=== PATIENT | female | born 1965 | race Caucasian/White ===

== ENCOUNTER 2020-02-19 09:51 | Outpatient (CLI) | payer OTHER, SELFPAY ==
[2020-02-19 10:31] LABS: Hemoglobin A1C 5.9 % (<5.7)
[2020-02-19 10:36] LABS: Alanine Aminotransferase 30 U/L (4-35); Albumin Level 4.5 g/dL (3.5-5.1); Alkaline Phosphatase 71 U/L (38-126); Aspartate Amino Transferase 35 U/L (14-36); Bilirubin,Total 0.6 mg/dL (0.2-1.3); Blood Urea Nitrogen 17 mg/dL (7-17); Calcium 10.4 mg/dL (8.4-10.2); Carbon Dioxide 28 mmol/L (22-30); Chloride 104 mmol/L (98-107); Cholesterol 238 mg/dL (0-200); Estimated Glomerular Filt Rate > 60; Glucose 111 mg/dL (65-105); HDL Direct 43 mg/dL; Potassium 4.1 mmol/L (3.4-5.0); Sodium 139 mmol/L (137-145); Triglycerides 239 mg/dL (<150)
[2020-02-19 10:47] LABS: LDL Cholesterol Direct 143 mg/dL
[2020-02-19 10:56] LABS: Hematocrit 41.8 % (37.0-47.0); Hemoglobin 14.4 g/dL (12.0-15.0); Mean Corpuscular HGB Conc 34.4 g/dl (32-36); Mean Corpuscular Hemoglobin 32.3 pg (26-34); Mean Corpuscular Volume 93.7 fl (80-100); Mean Platelet Volume 10.3 fl (7.4-10.4); Platelet Count Result 327 k/mm3 (150-375); Red Blood Count 4.46 M/mm3 (4.2-5.4); Red Cell Distribution Width 13.3 % (11.5-14.5); White Blood Count 5.9 K/mm3 (4.5-10.0)
== END 2020-02-19 09:52 | disposition home or self-care (01) ==
PROVIDERS: PCP Internal Medicine; Visit Provider Internal Medicine
DX: I10 Essential (primary) hypertension (principal); E66.01 Morbid (severe) obesity due to excess calories; E03.8 Other specified hypothyroidism
CPT/HCPCS: 36415; 80053; 80061; 83036; 84439; 84443; 85027

== ENCOUNTER 2020-04-17 08:44 | Emergency (ER) | payer OTHER, SELFPAY ==
--- NOTE | ~2020-04-17 | XR_ITS ---
EXAMINATION: XR knee LT min 4V DATE: 04/17/2020 09:12 INDICATION: Posterior left knee pain post injury TECHNIQUE: Anteroposterior, 2 oblique and crosstable lateral views of the left knee were obtained COMPARISON: 07/30/2019 FINDINGS: Alignment is normal. No fracture. Mild joint space narrowing in the patellofemoral compartment and t iny marginal osteophytes in the lateral compartment consistent with mild osteoarthritis. No joint eff usion/layering lipohemarthrosis. Soft tissues are unremarkable. IMPRESSION: 1. Mild osteoarthritis of the left knee. No joint effusion or acute osseous abnormality. Reviewed, dictated and finalized at location A. IMPRESSION: 1. Mild osteoarthritis of the left knee. No joint effusion or acute osseous abn ormality.
[2020-04-17 08:54] VITALS: BP 167/96; PULSE 81; RESP 12; TEMP 36.6; O2SAT 96
--- NOTE | 2020-04-17 09:31 | ED.GENADULT ---
HPI - General Adult General Chief complaint: Extremity Injury, Lower Stated complaint: knee injury Time Seen by Provider: 04/17/20 08:59 Source: patient and family Mode of arrival: ambulatory Limitations: no limitations History of Present Illness HPI narrative: 55-year-old with a history of hypothyroidism, hypertension, osteoarthritis of the knee here with complaints of left knee pain started last evening while she was shopping. Patient states that she felt a click in left knee since then she is unable to walk. She denies any other complaints. Onset (ago): day(s) (1) Location: left and lower extremity Radiation: non-radiation Severity: moderate Severity scale (1-10): 5 Quality: aching Pain Consistency: constant Relieving factors: rest Exacerbating factors: movement Associated symptoms: denies other symptoms Related Data Home Medications Medication Instructions Recorded Confirmed calcium carbonate 300 mg (750 mg) 300 mg PO TID 01/18/20 chewable tablet flaxseed oil 1,000 mg capsule 1,000 mg PO DAILY 01/18/20 levothyroxine 125 mcg capsule 125 mcg PO DAILY 01/18/20 metoprolol tartrate 75 mg tablet 75 mg PO DAILY 01/18/20 multivitamin 1 tablet PO DAILY 01/18/20 triamterene-hydrochlorothiazid 25 - 37.5 tablet PO 04/17/20 [Maxzide-25mg] Allergies Allergy/AdvReac Type Severity Reaction Status Date / Time ciprofloxacin Allergy Unknown Unknown Verified 04/17/20 08:59 verapamil Allergy Unknown Unknown Verified 04/17/20 08:59 Review of Systems Review of Systems: All systems reviewed & are unremarkable except as noted in HPI and below Constitutional: Constitutional: Reports no additional constitutional complaints Eyes: Eyes: Reports no additional eye complaints ENT: Reports system reviewed and no additional complaints, except as documented Cardiovascular: Cardiovascular: Reports no additional cardiovascular complaints Respiratory: Respiratory: Reports no additional respiratory complaints Musculoskeletal: Musculoskeletal: Reports no additional musculoskeletal complaints [facility] Past Medical History Medical History Jay's thyroiditis History of mononucleosis (~1980) Hypertension Osteoarthritis of both knees Tibialis tendonitis Surgical History Surgical History History of cholecystectomy (~2013) History of shoulder surgery (~2004) History of tonsillectomy (~1980) History of umbilical hernia repair (~2003) Family History Family History Mother Hypertension Grandparent Cerebrovascular accident, Onset Age: 70 Father Family history of malignant neoplasm of urinary bladder Sibling Hypertension Social History Social History Smoking status: Never smoker Alcohol intake: current Gender identity (if verbalized by the patient): Female Exam Narrative: Exam Narrative: GENERAL: Well-appearing, well-nourished, and in no acute distress. HEAD: Normocephalic, atraumatic. EYES: PERRLA and EOMI. ENT: Nares clear, . Mucous membranes moist. NECK: Supple. CHEST: Clear to auscultation. No respiratory distress. HEART: Regular rate and rhythm. No murmur heard. Normal peripheral pulses. EXTREMITIES: Left knee no joint effusion , painful ROM SKIN: Warm, dry, no rash. NEURO: No focal deficits. Alert and oriented x3. PSYCH: Normal mood and affect. Course Course Emergency Course: Inform patient about her x-ray findings advised her to use crutches and knee immobilizer, take pain medication as prescribed, follow-up with orthopedic doctor Vital Signs Vital signs: Vital Signs Temperature 36.6 C 04/17/20 08:54 Pulse Rate 81 04/17/20 08:54 Respiratory Rate 12 04/17/20 08:54 Blood Pressure 167/96 H 04/17/20 08:54 Pulse Oximetry 96 04/17/20 08:54 Temperature 36.6 C
[2020-04-17 09:52] VITALS: BP 155/93; PULSE 70; RESP 18; O2SAT 98
--- NOTE | 2020-04-17 10:11 | PC.NURSE ---
Knee immobilizer is not large enough for Pt. leg that the ED has stocked in the department. EDP notified and is ok with stevie wrapping Pt. knee. Pt. advised to go to a medical supply store a larger size.
== END 2020-04-17 10:13 | disposition home or self-care (01) ==
PROVIDERS: Emergency Provider Family Medicine; PCP Internal Medicine
DX: S83.92XA Sprain of unspecified site of left knee, initial encounter (principal); E03.9 Hypothyroidism, unspecified; I10 Essential (primary) hypertension; E06.3 Autoimmune thyroiditis; M17.0 Bilateral primary osteoarthritis of knee; X58.XXXA Exposure to other specified factors, initial encounter
CPT/HCPCS: 73564; 99283; A9270

== ENCOUNTER 2020-04-17 10:31 | Outpatient (CLI) | payer OTHER, SELFPAY ==
--- NOTE | ~2020-04-17 | MR_ITS ---
EXAMINATION: MR knee LT wo con DATE: 04/17/2020 12:24 INDICATION: Left knee pain TECHNIQUE: Magnetic resonance imaging (MRI) of the left knee was performed without intravenous contra st. Sequences included coronal PD-weighted FSE, coronal PD-weighted FS FSE, sagittal T2-weighted FSE , sagittal PD-weighted FS FSE and axial PD weighted fat saturated FSE. COMPARISON: Posterior left knee pain following injury FINDINGS: Evaluation mildly limited by small amount of motion artifact or blurring on several sequences. Medial compartment: Complex tear involving the body and posterior horn of the medial meniscus. There is likely displaced meniscal flap located in the inferior gutter caudal aspect of the meniscal body which are transmitted defect along the inferior margin of the meniscus at the junction of the body and posterior horn. Par tial-thickness cartilage loss with chondral surface regularity along the medial tibial plateau and an terior to central weightbearing medial femoral condyle. More discrete deep partial-thickness chondral fissure at the central aspect of the medial tibial plateau. No degenerative subchondral changes. Lateral compartment: Lateral meniscus is normal. Mild partial thickness cartilage loss with smooth chondral surface along the weightbearing lateral femoral condyle. Additional partial thickness cartilage loss with smooth ch ondral surface at the lateral tibial plateau which appears to involve greater than 50% the cartilage thickness medially junction with the articular surface of the intercondylar eminence. Patellofemoral compartment: Deep chondral ulceration and fissuring with mild underlying cortical irregularity and minimal subarti cular edema at the mid to inferior aspect of the medial lateral trochlea and intervening trochlear gr oove. Additional partial thickness chondral fissuring without degenerative subarticular changes at th e inferior aspect of the medial and lateral patellar facets. Ligaments and tendons: Anterior and posterior cruciate ligaments are normal. The medial collateral ligament and fibular elenita ateral ligament complex are normal. The extensor mechanism is normal. The visualized medial and later al hamstring tendons as well as the iliotibial band are normal. Fluid: Very small left knee joint effusion at the suprapatellar pouch. Moderate-sized Tamayo's cyst. No loose osteochondral bodies identified. Osseous/other: Bone alignment is normal. No fracture or pathologic marrow replacing process. IMPRESSION: 1. Complex medial meniscal tear with small displaced meniscal flap. 2. Mild tricompartmental osteoarthritis with high-grade patellofemoral chondromalacia and moderate gr deandre chondral malacia the medial and lateral compartments. 3. Very small left knee joint effusion with moderate-sized Tamayo's cyst. Reviewed, dictated and finalized at location A. IMPRESSION: 1. Complex medial meniscal tear with small displaced meniscal flap. 2. Mild tricompartmental osteoarthritis with high-grade patellofemoral chondrom alacia and moderate grade chondral malacia the medial and lateral compartments. 3. Very small left knee joint effusion with moderate-sized Tamayo's cyst.
== END 2020-04-17 10:32 | disposition home or self-care (01) ==
PROVIDERS: PCP Internal Medicine; Visit Provider Internal Medicine
DX: S83.232A Complex tear of medial meniscus, current injury, left knee, initial encounter (principal); X58.XXXA Exposure to other specified factors, initial encounter; M17.12 Unilateral primary osteoarthritis, left knee; M25.462 Effusion, left knee; M71.22 Synovial cyst of popliteal space [Baker], left knee
CPT/HCPCS: 73721

== ENCOUNTER 2020-04-24 10:33 | Outpatient (CLI) | payer OTHER, SELFPAY ==
--- NOTE | 2020-04-24 10:34 | ECG_ITS ---
Measurements Intervals [place] Rate: 74 P: 26 TN: 203 QRS: 2 QRSD: 93 T: 5 QT: 399 QTc: 444 Interpretive Statements SINUS RHYTHM LOW QRS VOLTAGE IN PRECORDIAL LEADS VOLTAGE CRITERIA FOR LVH CONSIDER INFERIOR INFARCT, AGE INDETERMINATE BORDERLINE T WAVE ABNORMALITY- ANTERIOR LEADS ABNORMAL ECG Electronically Signed On 04-24-2020 12:12:34 CDT by Joseph Vasquez D.O.
[2020-04-24 11:31] LABS: Blood Urea Nitrogen 19 mg/dL (7-17); Calcium 10.1 mg/dL (8.4-10.2); Carbon Dioxide 30 mmol/L (22-30); Chloride 102 mmol/L (98-107); Estimated Glomerular Filt Rate 57; Glucose 103 mg/dL (65-105); Potassium 4.5 mmol/L (3.4-5.0); Sodium 140 mmol/L (137-145)
== END 2020-04-24 10:34 | disposition home or self-care (01) ==
LOC: ANHSURGERY 10:34
PROVIDERS: Anesthesiology; PCP Internal Medicine; Visit Provider Orthopaedic Surgery
DX: Z51.81 Encounter for therapeutic drug level monitoring (principal); I10 Essential (primary) hypertension; Z79.899 Other long term (current) drug therapy
CPT/HCPCS: 36415; 80048; 93005

== ENCOUNTER 2020-05-01 01:03 | Outpatient (CLI) | payer OTHER, SELFPAY ==
[2020-05-01 18:39] LABS: SARS-CoV-2 RNA PCR Negative
== END 2020-05-01 01:04 | disposition home or self-care (01) ==
LOC: ANHCOVIDDT 01:03
PROVIDERS: PCP Internal Medicine; Visit Provider Orthopaedic Surgery
DX: Z01.812 Encounter for preprocedural laboratory examination (principal); Z11.59 Encounter for screening for other viral diseases
CPT/HCPCS: 87635; C9803; U0003

== ENCOUNTER 2020-05-03 01:45 | Day surgery (SDC) | payer OTHER, SELFPAY ==
[2020-04-23 10:56] VITALS: BMI 47.0
[2020-05-03] VITALS (7 sets, daily range): BP systolic 112–137; BP diastolic 56–87; PULSE 61–72; RESP 15–20; TEMP 36.3–36.4; O2SAT 94–100
[2020-05-03] MEDS: ACETAMINOPHEN 500 MG TABLET 1000 MG PO (08:41)
--- NOTE | 2020-05-03 09:01 | WPDANESEPPF ---
Anes - Initial Pre Proc Eval Procedure: Operation Date: 05/03/20 10:30 Proposed Procedures p Left Knee Arthroscopy, Partial Medial Meniscectomy - Darryn Herrera MD Date/Time: 05/03/20 09:01 Surgeon: Darryn Herrera MD Pre Op Diagnosis: Left Knee Medial Meniscus Tear Patient Data Age: 55 Gender: F Height: 1.7 m Weight: 136.1 kg Allergies Allergy/AdvReac Type Severity Reaction Status Date / Time ciprofloxacin Allergy Unknown SHORTNESS Verified 05/03/20 08:37 OF BREATH, CHEST PRESSURE, HYPERTENSION verapamil Allergy Unknown PETECHIAE Verified 05/03/20 08:37 RASH hydrocodone AdvReac NAUSEA, Verified 05/03/20 08:37 VOMITING, HEADACHE Home Medications Medication Instructions Recorded Confirmed Type calcium carbonate 300 mg (750 mg) 300 mg PO TID 01/18/20 05/03/20 History chewable tablet flaxseed oil 1,000 mg capsule 1,000 mg PO DAILY 01/18/20 05/03/20 History levothyroxine 125 mcg capsule 125 mcg PO DAILY 01/18/20 05/03/20 History metoprolol tartrate 75 mg tablet 75 mg PO DAILY 01/18/20 05/03/20 History multivitamin 1 tablet PO DAILY 01/18/20 05/03/20 History triamterene-hydrochlorothiazid 25 - 37.5 tablet PO DAILY 04/17/20 05/03/20 History [Maxzide-25mg] glucos sul [id number] 1 cap PO DAILY 04/23/20 05/03/20 History [Glucosamine Chondroitin] magnesium, potassium aspartate 1 cap PO DAILY PRN 04/23/20 05/03/20 History vitamin B complex 1 tablet PO DAILY 04/23/20 05/03/20 History Patient hx anesthesia problems: none Family hx anesthesia problems: none PMFSH Past Medical History Medical History (Updated 05/03/20 @ 09:05 by Gilberto Crain MD) Anxiety Depression Jay's thyroiditis History of mononucleosis (~1980) Hypertension Hypothyroidism Migraine Morbid obesity with BMI of 40.0-44.9, adult ORION (obstructive sleep apnea) Osteoarthritis of both knees Tibialis tendonitis Surgical History Surgical History History of cholecystectomy (~2013) History of shoulder surgery (~2004) History of tonsillectomy (~1980) History of umbilical hernia repair (~2003) Social History Social History Smoking status: Never smoker Alcohol intake: current Gender identity (if verbalized by the patient): Female Spiritual care concerns: No Anes - Eval Final PreProcedure Day of Procedure 05/03/20 09:01 Patient weight: morbidly obese Heart: regular rate and rhythm Lungs: clear to auscultation and normal air movement Airway: Mallampati scale class II Neurological: alert and oriented Last oral intake: >/= 8 hours ASA classification: III Emergent: no Anesthetic plan: proceed Anesthesia type and monitoring: general LMA Informed Consent: The patient's anesthetic plan and its attendant risks and benefits were discussed with the patient/family/POA. Questions were solicited and answers provided to the satisfaction of the patient/family/POA.
[2020-05-03] MEDS: LACTATED RINGERS 1,000 ML 30 ML IV CONT ×2 (09:05→11:48)
[2020-05-03] MEDS: SCOPOLAMINE 1.5 MG PATCH TRANSDERM (09:26)
[2020-05-03] MEDS: KETOROLAC 15 MG/ML VIAL (*BKC) IV PUSH (09:26)
[2020-05-03] MEDS: FAMOTIDINE 20 MG/2 ML VIAL IV PUSH (09:27)
--- NOTE | 2020-05-03 10:47 | WPDHPUPDATE1 ---
History and Physical Update Update Date/Time: 05/03/20 10:47 History and Physical has been reviewed, including an updated exam of the patient. There are NO changes in the patient's condition. Risks, benefits, and alternatives have been discussed and questions answered. Patient agrees to proceed with procedure.
[2020-05-03] MEDS: ceFAZolin 3 GM/D5W 100 ML 100 ML IVPB (10:52)
[2020-05-03] MEDS: BUPIVACAINE/EPINEPHRINE 0.5% 10 ML VIAL 20 ML INFILTRATE (11:07)
--- NOTE | 2020-05-03 16:47 | PM.PROC ---
Procedure Note - Detailed Date of procedure: 05/03/20 Pre-op diagnosis: Left Knee Medial Meniscus Tear Medial meniscus tear. Post-op diagnosis: same Procedure performed: Arthroscopic partial medial meniscectomy. Description of procedure: Extensive complex tearing of the posterior horn of the medial meniscus. Treated with debridement. Subtotal meniscectomy. Radial component of the tear posteromedial meniscus. There was a limited amount of the superior meniscal leaflet remaining there. Moderate femoral chondromalacia treated with gentle chondroplasty. Subtle medial plica gently debrided. No significant changes laterally. ACL intact. Anesthesia: GETA Surgeon: Darryn Herrera MD Estimated blood loss (mL): 5 Complications: None Condition: stable Disposition: PACU Findings: Procedure Details: The patient was identified and the surgical site confirmed and signed in the preoperative holding area. Antibiotics were started per protocol. She was brought to the operative room and transferred to the OR table. A general anesthetic was administered. Supine position with the operative lower extremity position in the leg andrade after placement of a well padded tourniquet. The leg support was lowered and the contralateral limb was supported with a soft bolster. The knee was prepped and draped in the usual sterile fashion. A time-out was performed. The portal sites were marked and infiltrated with 0.5% Marcaine 20 mL. The limb was exsanguinated and the tourniquet inflated to 300 mL Hg. Standard inferolateral and inferomedial portals were established. Inflow was obtained with the saline pump. The camera was introduced. Diagnostic inspection of the joint was accomplished. The meniscus was debrided with the arthroscopic shaver and punches until stable. A modest sized medial plica was debrided gently. Chondroplasty was performed on the medial femoral condyle. There were grade 2 changes on the medial femur and grade 1 on the tibia. Grade 1 in the trochlea and grade 2 at the patella. The arthroscopic instruments were removed. The tourniquet released and wounds closed with subcutaneous 3-0 Monocryl absorbable suture. Steri strips and a sterile dressing were applied. A light elastic wrap was placed. The patient was extubated and brought to the recovery room in stable condition.
== END 2020-05-03 13:50 | disposition home or self-care (01) ==
PROVIDERS: PCP Internal Medicine; Visit Provider Orthopaedic Surgery
PROC: (CPT 29870; principal; 2020-05-03 10:30)
DX: S83.232A Complex tear of medial meniscus, current injury, left knee, initial encounter (principal); X58.XXXA Exposure to other specified factors, initial encounter; M94.262 Chondromalacia, left knee; G47.33 Obstructive sleep apnea (adult) (pediatric); I10 Essential (primary) hypertension; E06.3 Autoimmune thyroiditis; F41.8 Other specified anxiety disorders; E66.01 Morbid (severe) obesity due to excess calories; Z68.42 Body mass index [BMI] 45.0-49.9, adult
CPT/HCPCS: 29881; A9270; J0690; J1100; J1885; J2250; J2405; J2704; J3010; J7120

== ENCOUNTER 2020-08-12 10:30 | Outpatient (CLI) | payer OTHER, SELFPAY ==
[2020-08-12 11:37] LABS: Basophils Percent Auto 0.6 % (0.2-1.2); Eosinophils Absolute Auto 0.2 K/mm3 (0-0.3); Eosinophils Percent Auto 2.7 % (0-4.4); Hematocrit 42.2 % (37.0-47.0); Hemoglobin 14.6 g/dL (12.0-15.0); Immature Granulocyte Absolute 0.02 K/mm3 (0.00-0.031); Immature Granulocyte Percent A 0.3 % (0-0.5); Lymphocytes Absolute Auto 1.99 K/mm3 (0.9-3.2); Lymphocytes Percent Auto 31.5 % (18.3-44.2); Mean Corpuscular HGB Conc 34.6 g/dl (32-36); Mean Corpuscular Hemoglobin 32.4 pg (26-34); Mean Corpuscular Volume 93.8 fl (80-100); Mean Platelet Volume 9.9 fl (7.4-10.4); Monocytes Absolute Auto 0.5 K/mm3 (0.1-0.6); Monocytes Percent Auto 8.4 % (2.6-8.5); Neutrophils Absolute Auto 3.6 K/mm3 (1.3-6.7); Neutrophils Percent Auto 56.5 % (45.5-73.1); Platelet Count Result 315 k/mm3 (150-375); Red Cell Distribution Width 13.2 % (11.5-14.5); White Blood Count 6.3 K/mm3 (4.5-10.0)
[2020-08-12 11:47] LABS: Hemoglobin A1C 5.4 % (<5.7)
[2020-08-12 11:48] LABS: Alanine Aminotransferase 32 U/L (4-35); Albumin Level 4.6 g/dL (3.5-5.1); Alkaline Phosphatase 71 U/L (38-126); Anion Gap 9 mmol/L (8-16); Aspartate Amino Transferase 33 U/L (14-36); Bilirubin,Total 0.5 mg/dL (0.2-1.3); Blood Urea Nitrogen 18 mg/dL (7-17); Calcium 10.3 mg/dL (8.4-10.2); Carbon Dioxide 29 mmol/L (22-30); Chloride 102 mmol/L (98-107); Estimated Glomerular Filt Rate 57; Glucose 107 mg/dL (65-105); Potassium 3.9 mmol/L (3.4-5.0); Sodium 140 mmol/L (137-145)
[2020-08-12 12:54] LABS: Folic Acid 19.4 ng/mL (2.76->20)
[2020-08-12 13:03] LABS: Vitamin D 25 Hydroxy 60.1 ng/mL
== END 2020-08-12 10:31 | disposition home or self-care (01) ==
PROVIDERS: PCP Internal Medicine
DX: E88.9 Metabolic disorder, unspecified (principal); E63.9 Nutritional deficiency, unspecified; E03.9 Hypothyroidism, unspecified; R53.83 Other fatigue; E66.01 Morbid (severe) obesity due to excess calories; Z68.43 Body mass index [BMI] 50.0-59.9, adult; R79.9 Abnormal finding of blood chemistry, unspecified
CPT/HCPCS: 36415; 80053; 82306; 82607; 82728; 82746; 83036; 84443; 85025

== ENCOUNTER 2020-09-18 10:56 | Outpatient (CLI) | payer OTHER, SELFPAY ==
[2020-09-18 11:59] LABS: Alanine Aminotransferase 28 U/L (4-35); Albumin Level 4.5 g/dL (3.5-5.1); Alkaline Phosphatase 77 U/L (38-126); Anion Gap 7 mmol/L (8-16); Aspartate Amino Transferase 32 U/L (14-36); Bilirubin,Total 0.6 mg/dL (0.2-1.3); Blood Urea Nitrogen 19 mg/dL (7-17); Calcium 10.2 mg/dL (8.4-10.2); Carbon Dioxide 33 mmol/L (22-30); Chloride 100 mmol/L (98-107); Estimated Glomerular Filt Rate 57; Glucose 124 mg/dL (65-105); Potassium 3.8 mmol/L (3.4-5.0); Sodium 140 mmol/L (137-145)
[2020-09-18 12:37] LABS: Add Urine Microscopic? NO; Appearance Urine Clear (Clear); Bilirubin Urine Negative (Negative); Blood Urine Negative (Negative); Color Urine Yellow (Yellow); Glucose Urine UA Negative (Negative); Ketones Urine Negative (Negative); Leukocyte Esterase Ur Negative LEU/UL (Negative); Mucus Urine Rare /lpf; Nitrate Urine Negative (Negative); Protein Urine Negative (Negative); RBC Urine 0-2 /hpf (0-2); Specific Grav Ur 1.018 (1.001-1.035); Squamous Epithelial Cell Urine Few /hpf (Few); Urobilinogen Urine Negative mg/dL (<2.0); WBC Urine 0-3 /hpf
== END 2020-09-18 10:57 | disposition home or self-care (01) ==
PROVIDERS: PCP Internal Medicine; Visit Provider Internal Medicine
DX: R39.9 Unspecified symptoms and signs involving the genitourinary system (principal)
CPT/HCPCS: 36415; 80053; 81003

== ENCOUNTER 2020-12-16 08:28 | Outpatient (CLI) | payer OTHER, SELFPAY ==
[2020-12-16 19:40] LABS: Hematocrit 45.3 % (37.0-47.0); Hemoglobin 14.6 g/dL (12.0-15.0); Mean Corpuscular HGB Conc 32.2 g/dl (32-36); Mean Corpuscular Hemoglobin 31.9 pg (26-34); Mean Corpuscular Volume 98.9 fl (80-100); Mean Platelet Volume 10.3 fl (7.4-10.4); Platelet Count Result 339 k/mm3 (150-375); Red Blood Count 4.58 M/mm3 (4.2-5.4); Red Cell Distribution Width 13.7 % (11.5-14.5); White Blood Count 6.2 K/mm3 (4.5-10.0)
[2020-12-16 19:51] LABS: Hemoglobin A1C 5.6 % (<5.7)
[2020-12-16 20:05] LABS: Vitamin D 25 Hydroxy 77.8 ng/mL
[2020-12-16 20:07] LABS: Alanine Aminotransferase 30 U/L (4-35); Albumin Level 4.1 g/dL (3.5-5.1); Alkaline Phosphatase 68 U/L (38-126); Anion Gap 3 mmol/L (8-16); Aspartate Amino Transferase 27 U/L (14-36); Bilirubin,Total 0.4 mg/dL (0.2-1.3); Blood Urea Nitrogen 20 mg/dL (7-17); Carbon Dioxide 33 mmol/L (22-30); Chloride 104 mmol/L (98-107); Cholesterol 236 mg/dL (0-200); Estimated Glomerular Filt Rate 57; Glucose 112 mg/dL (65-105); HDL Direct 50 mg/dL; Potassium 4.8 mmol/L (3.4-5.0); Sodium 140 mmol/L (137-145); Triglycerides 264 mg/dL (<150)
[2020-12-16 20:18] LABS: LDL Cholesterol Direct 147 mg/dL
== END 2020-12-16 08:29 | disposition home or self-care (01) ==
PROVIDERS: PCP Internal Medicine
DX: E88.9 Metabolic disorder, unspecified (principal); E63.9 Nutritional deficiency, unspecified; R53.83 Other fatigue; E66.01 Morbid (severe) obesity due to excess calories; Z68.43 Body mass index [BMI] 50.0-59.9, adult
CPT/HCPCS: 36415; 80053; 80061; 82306; 82607; 82728; 82746; 83036; 84443; 85027

== ENCOUNTER 2022-02-16 10:49 | Outpatient (CLI) | payer OTHER, SELFPAY ==
--- NOTE | ~2022-02-16 | MM_ITS ---
EXAMINATION: MM screening chelsey BI w noah HISTORY: Screening TECHNIQUE: Craniocaudal and mediolateral oblique 3-D tomosynthesis images were obtained and synthetic 2-D images were generated. CAD analysis was submitted and interpreted. COMPARISON: Comparison to multiple prior studies sequentially, with oldest reviewed study dated 12/25. BREAST PARENCHYMAL COMPOSITION: Breast composed of scattered areas of fibroglandular density FINDINGS: There is developing subareolar asymmetry in the right breast with possible architectural di stortion. The left breast is stable without evidence for malignancy. IMPRESSION: 1. Subtle developing right breast asymmetry, subareolar location. 2. Additional mammographic views and possible breast ultrasound are recommended. BI-RADS Category 0: Incomplete: Needs additional imaging evaluation. Reviewed, dictated and finalized at location A. IMPRESSION: 1. Subtle developing right breast asymmetry, subareolar location. 2. Additional mammographic views and possible breast ultrasound are recommended . BI-RADS Category 0: Incomplete: Needs additional imaging evaluation.
== END 2022-02-16 10:50 | disposition home or self-care (01) ==
LOC: ANHIMG 10:50
PROVIDERS: PCP Internal Medicine; Visit Provider Internal Medicine
DX: Z12.31 Encounter for screening mammogram for malignant neoplasm of breast (principal); R92.8 Other abnormal and inconclusive findings on diagnostic imaging of breast
CPT/HCPCS: 77063; 77067

== ENCOUNTER 2022-02-26 12:59 | Outpatient (CLI) | payer OTHER, SELFPAY ==
--- NOTE | ~2022-02-26 | MMUS_ITS ---
EXAMINATION: MM diagnostic chelsey RT w noah, US breast RT limited HISTORY: Focal asymmetry in the subareolar aspect of the right breast TECHNIQUE: Additional 3-D tomosynthesis images of the right breast were performed and synthetic 2-D i mages were generated. CAD analysis was submitted and interpreted. High resolution limited right breas t ultrasound was performed. COMPARISON: 02/16/2022, 07/19/2019, 08/20/2016 FINDINGS: MAMMOGRAPHIC FINDINGS: There is a return to baseline fibroglandular appearance with spot compression of the right breast in the area questioned on screening mammogram. ULTRASOUND: No focal cystic or solid mass is identified. There are multiple mildly dilated subareolar ducts, some of which contain debris. IMPRESSION: 1. No mammographic or sonographic evidence of malignancy. 2. Recommend routine screening mammography in one year. BI-RADS Category 2: Benign finding(s). Reviewed, dictated and finalized at location A. IMPRESSION: 1. No mammographic or sonographic evidence of malignancy. 2. Recommend routine screening mammography in one year. BI-RADS Category 2: Benign finding(s).
== END 2022-02-26 13:00 | disposition home or self-care (01) ==
PROVIDERS: PCP Internal Medicine; Visit Provider Internal Medicine
DX: R92.8 Other abnormal and inconclusive findings on diagnostic imaging of breast (principal)
CPT/HCPCS: 76642; 77061; 77065; G0279

== ENCOUNTER 2025-01-19 09:09 | Emergency (ER) | payer OTHER, SELFPAY ==
[2025-01-19] VITALS (25 sets, daily range): BP systolic 119–157; BP diastolic 55–101; PULSE 64–85; RESP 11–26; TEMP 36.6–36.7; O2SAT 97–100
--- NOTE | ~2025-01-19 | XR_ITS ---
EXAM/PROCEDURE: XR chest 2V - 01/19/2025 10:10 CDT HISTORY: 60 years old Female with intermittent chest pain, HYPERTENSION TECHNIQUE: Two view(s) of the chest. COMPARISON: None available. FINDINGS: LUNGS/ PLEURA: No focal consolidation. No appreciable pneumothorax or large pleural effusion. HEART/ MEDIASTINUM: Heart appears normal in size. BONES: No acute osseous abnormality. OTHER: Visualized upper abdomen is unremarkable. IMPRESSION: No acute process. Reviewed, dictated and finalized at location A. IMPRESSION: No acute process.
--- NOTE | ~2025-01-19 | CT_ITS ---
EXAM: CT brain wo con - 01/19/2025 10:10 CDT History: 60 years old Female with high blood pressure, [place] COMPARISON: None available. PROCEDURE: CT of the head without contrast. Axial, sagittal and coronal reformatted planes were andriy luated. Automatic exposure control was used for this study. FINDINGS: BRAIN PARENCHYMA: No acute hemorrhage. No mass effect or herniation. Combs-white matter differentiatio n is maintained. Normal appearance of cortex. VENTRICLES/ EXTRA-AXIAL SPACES: No hydrocephalus or extra-axial fluid collection. EXTRACRANIAL STRUCTURES: No calvarial fracture. IMPRESSION: No evidence for acute intracranial hemorrhage or calvarial fracture. Reviewed, dictated and finalized at location A.
--- OUTSIDE RECORDS SUMMARY | 2025-01-19 09:26 | XMS_ITS | Encounter Summary ---
Author Organization [facility] Address [address] [place] [address] Phone Care Team Providers Care Urology Teacher Name Role Phone Carlos Enrique Swain MD Primary Care Provider [phone] Encounter Details Date Type Department Care Team (Late st Contact Info) Description 02/25/2021 Telephone [facility] [address] [place] [address] Medical Office Building [address] [place] [address] Juanita Powell Social History Tobacco Use Types Packs/Day Years Used Date Smoking Tobacco: Never Alcohol Use Standard Drinks/Week Comments No 0 (1 standard drink = 0.6 oz pur e alcohol) AUDIT-C Answer Date Recorded Q1: How often do you have a drink containing alc ohol? 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 Gender Identity Female 02/04/2021 10:40 AM CDT Sexual Orientation Straight 02/04/2021 10 :40 AM CDT documented as of this encounter Plan of Treatment Not on file documented as of this encounter Visit Diagnoses Not on filedocumented in this encounter Additional Health Concerns Infection Onset Date Last Indicated Resolved Time COVID: Suspected 05/30/2021 05/30/2021 05/30/2021 1:20 PM CDT COVID: Suspected 04/22/2022 04/22/2022 04/22/2022 9:52 AM CDT COVID: Suspected 04/22/2022 04/22/2022 04/22/2022 3:21 PM CDT COVID19 04/22/2022 04/22/2022 05/02/2022 3:05 AM CDT COVID: Recovered Comment:Added based on recent COVID infection. 05/02/2022 07/02/2022 08/30/2022 3:[address] documented as of this encounter Care Teams Urology Teacher Relationship Specialty Start Date End Date Carlos Enrique Swain MD [address] [place] [id number] PCP - General Internal Medicine 07/30/20 documented as of this encounter
--- OUTSIDE RECORDS SUMMARY | 2025-01-19 09:26 | XMS_ITS | Clinical Summary ---
Author Organization [facility] Address [address] [place] [address] Phone Care Team Providers Care Veterinarian Small Animal Name Role Phone Carlos Enrique Swain MD Primary Care Provider [phone] Fortino Trejo MD Unavailable Unavaila ble Allergies Active Allergy Reactions Criticality Noted Date Comments Verapamil Other (see Comments) Skin rash/hives Ciprofloxacin Other (see Comments) Tightness in chest Ciprofloxacin Hcl Shortness of Breath High 6 Codeine Sulfate Other (see Comments) Nausea/vomiting/diarrhe a Meperidine Other (see Comments) Nausea/vomiting/diarrhe a,headache Hydrocodone Other (see Comments) 08/14/2021 Headache/nausea/ vomiting/diarrhea Metformin Diarrhea 08/14/2021 Medications Cyanocobalamin ( SUPER VITAMIN B12) 2500 MCG PO CHEW Active ibuprofen 800 MG PO TABS Take 800 mg by mouth every 8 hours as needed. Active Magnesium ([facility] MAGNESIUM) 250 MG PO TABS Take 500 mg by mouth daily. Active Cholecalciferol (VITAMIN D3) 5000 UNITS PO CAPS Take 5,000 Units by mouth every 48 hours. Active omeprazole 40 MG PO CAP-DEL-REL Take 40 mg by mouth daily. Active ranitidine 150 MG PO TABS Take 150 mg by mouth nightly. At bedtime Active levothyroxine 100 MCG PO TABS Take 112 mcg by mouth daily. Active Flaxseed, Linseed, ([employer] FLAXSEED OIL) 1000 MG PO CAPS Take by mouth daily. Active baclofen (LIORESAL) 20 MG Tablet 6 Active triamterene-hyd rochlorothiazid e (MAXZIDE) 37.5-25 MG Tablet 5 Active metoprolol tartrate (LOPRESSOR) 50 MG Tablet Take 50 mg by mouth 2 times daily. 5 Active ranitidine (ZANTAC) 150 MG Tablet 5 Active cloNIDine (CATAPRES) 0.1 MG Tablet 5 Active potassium chloride CR (KLOR-CON) 10 MEQ Tablet Controlled Release 5 Active Meloxicam 15 MG Tablet Take 15 mg by mouth daily. 6 Active hydrALAZINE 25 MG Tablet 6 Active lovastatin (MEVACOR) 20 MG Tablet 6 Active hydrALAZINE 25 MG Tablet Take 25 mg by mouth. 6 Active LORazepam (ATIVAN) 0.5 MG Tablet 6 Active losartan (COZAAR) 50 MG Tablet 6 Active lovastatin (MEVACOR) 20 MG Tablet 6 Active zolpidem (AMBIEN) 10 MG Tablet Take 1 Tab by mouth nightly as needed. 10 Tab 8 Active Additional Information Patient not taking.Reported on 08/14/2021 [place]-3 Fatty Acids (FISH OIL PO) Take 1 Capsule by mouth daily. Active famotidine (PEPCID) 10 MG Tablet Take 10 mg by mouth 2 times daily. Active [id number]-[id number]-[id number] -RS-X-VQIP-SECU PO Take 1 Tablet by mouth daily. Active Active Problems Problem Noted Date Diagnosed Date Lumbar spinal stenosis 09/18/2016 ORION (obstructive sleep apnea) 02/05/2016 Esophageal reflux Fatty liver Systemic hypertension Hypothyroidism Morbid obesity Pharyngeal disorder Encounters Date Type Department Care Team Description 01/16/2025 10:45 AM CDT [facility] [address], [address] [place] [address] Suthan, Nanthini, MD Bogowith, Tamika A, PT Chronic neck pain (Primary Dx); Cervical spondylosis Discharge Disposition: Discharged to home or Selfcare 01/16/2025 Plan of Care Documentation [facility] at [address], [address] [place] [address] 01/15/2025 Travel 01/03/2025 Transcribe Orders [facility] [address] [place] [address] Carlos Enrique Swain MD Cervical spondylosis (Primary Dx) from Last 3 Months Family History Medical History Relation Name Comments Cancer Father bladder Hypertension Mother Relation Name Status Comments Father Mother Alive Social History Tobacco Use Types Packs/Day Years Used Date Smoking Tobacco: Never Smokeless Tobacco: Never Alcohol Use Standard Drinks/Week Comments Yes 0 (1 standard drink = 0.6 oz pur e alcohol) Occassionally Comments No Sex and Gender Information Value Date Recorded Sex Assigned at Not on file Legal Sex Female 12:21 AM CDT Gender Identity Not on file Sexual Orientation Not on file 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 Not on file Not on file Last Filed Vital Signs Vital Sign Reading Time Taken Comments Blood Pressure 125/79 08/19/2021 12:45 PM MYSQL DATABASE ADMINISTRATOR Pulse 64 08/19/2021 12:45 PM MYSQL DATABASE ADMINISTRATOR Temperature 36.8 C (98.2 F) 08/19/2021 12:45 PM MYSQL DATABASE ADMINISTRATOR Respiratory Rate 16 08/19/2021 12:45 PM MYSQL DATABASE ADMINISTRATOR Oxygen Saturation 96% 08/19/2021 12:45 PM MYSQL DATABASE ADMINISTRATOR Inhaled Oxygen Concentration - - Weight 126.6 kg (279 lb) 08/19/2021 8:08 AM MYSQL DATABASE ADMINISTRATOR Height 170.2 cm (5' 7 ) 08/19/2021 8:08 AM MYSQL DATABASE ADMINISTRATOR Body Mass Index 43.7 08/19/2021 8:08 AM MYSQL DATABASE ADMINISTRATOR Plan of Treatment Upcoming Encounters Date Type Department Care Team (Late st Contact Info) Description 01/23/2025 4:00 PM CDT Physical Therapy [facility] Re[facility] at [address] [place] [address] Carlos Enrique Swain MD [address] [place], [place] [id number] Rico Franco, DIETARY SERVICES DIRECTOR [place] Discharge Disposition: Discharged to home or Selfcare 01/25/2025 1:45 PM CDT [facility] [address], [address] [place] [address] Carlos Enrique Swain MD [address] [place], [place] [phone] Rico Franco, BISI [place] 01/30/2025 2:00 PM CDT [facility] [address], [address] [place] [address] Carlos Enrique Swain MD [address] [place], [place] [id number] Tamika Louis, PT [place] 02/01/2025 1:45 PM CDT [facility] [address], [address] [place] [address] Carlos Enrique Swain MD [address] [place], [place] [phone] Rico Franco PTA [place] 02/06/2025 8:30 AM CDT [facility] at [address], [address] [place] [address] Carlos Enrique Swain MD [address] [place], [place] [phone] Rico Franco, BISI [place] 02/08/2025 2:45 PM CDT [facility] [address] [facility], [address] [place] [address] Carlos Enrique Swain MD [address] [facility] [address] [place], [place] [id number] Tamika Louis, PT [place] 02/13/2025 1:45 PM CDT [facility] [address], [address] [place] [address] Carlos Enrique Swain MD [address] [place], [place] [phone] Rico Franco, DIETARY SERVICES DIRECTOR [place] 02/15/2025 1:45 PM CDT [facility] [address] [place] [address] Carlos Enrique Swain MD [address] [facility] [address] [place] [address] Rico Franco, DIETARY SERVICES DIRECTOR [place] 02/20/2025 2:45 PM CDT [facility] [address], [address] [place] [address] Carlos Enrique Swain MD [address] [facility] [address] [place], [place] [phone] Tamika Louis, PT [place] 02/22/2025 2:00 PM CDT [facility] [address], [address] [place] [address] Carlos Enrique Swain MD [address] [place] [address] Tamika Louis, PT [place] 02/27/2025 2:00 PM CDT [facility] [place] [address], [address] [place] [address] Carlos Enrique Swain MD [address] [place] [address] Tamika Louis, PT [place] Health Maintenance Due Date Last Done Comments Hepatitis C Virus (HCV) Screening 1965 Cologuard 01/04/2014 Immunochemical Fecal Occult Blood 01/04/2014 Pneumococcal Immunization (5 0+ years) (1 of 1 - PCV) 01/04/2014 Zoster Immunization (1 of 2) 01/04/2014 SARS-COV-2 Immunization (1 - season) 2024 Mammogram 11/11/2024 11/11/2023, 02/22/2016 Influenza Immunization (Seas on Ended) 2025 08/17/2018 Colonoscopy 02/18/2032 02/17/2022, 09/03/2014 Colorectal Cancer Screening 02/18/2032 Respiratory Syncytial Virus (RSV) Immunization (Adult) (1 - 1-dose 75+ series) 01/04/2039 02/17/2022, 09/03/2014 DTaP/Tdap/Td Immunization Discontinued 01/25/2018 TdaP Immunization Completed 01/25/2018 Hepatitis B Immunization Aged Out No longer eligible based on patient's age to complete this topic Meningococcal Immunization (ACWY) Aged Out No longer eligible based on patient's age to complete this topic Rotavirus Immunization Aged Out No lo nger eligible based on patient's age to complete this topic Medical Devices Implanted Type Area Weed Science Research Technician Device Identifier Shelf Expiration Date Model / Serial / Lot Device Clsr 5fr [employer] Superintendent Vasc Bln Cath Lock Syr Integrate Sealant 10ml Lf Disp - [id number] Implanted:Qty : 1 on 08/19/2021 by Rosana Marrero MD at [facility] IMPLANT Right: [employer] 07/10/2023 [id number] / / [id number] Procedures Procedure Name Priority Date/Time Associated Diagnosis Comments STEPHEN SCREENING BILATERAL DIGITAL W CAD Routine 02/22/2016 10:07 AM CDT Visit for screening mammogram HM COLONOSCOPY Routine 09/03/2014 from Last 3 Months or Most Recently Relevant to Health Maintenance Results * STEPHEN SCREENING BILATERAL DIGITAL W CAD (02/22/2016 10:07 AM CDT) Anatomical Region Laterality Modality breast Bilateral Mammography 02/22/2016 9:44 AM CDT Narrative 02/25/2016 4:28 PM CDT - STEPHEN SCREENING BILATERAL DIGITAL W CAD BILATERAL DIGITAL SCREENING MAMMOGRAM WITH CAD WITH MEDIOLATERAL OBLIQUE CRANIOCAUDAL: 02/22/2016 The study was acquired using digital technology and interpreted from soft copy. Current study was also evaluated with ICAD version 7.2. CLINICAL: Routine screening. Patient has no complaints. Previous history of cervical cancer. No family history of breast cancer. COMPARISONS: Comparison is made to exams dated: 12/25/2014 [facility] and 03/14/2012 [facility]. BREAST TISSUE: The tissue of both breasts is heterogeneously dense, which may obscure small masses. FINDINGS: There are benign appearing calcifications in the right breast. No significant masses, calcifications, or other findings are seen in either breast. There has been no significant interval change. IMPRESSION: BI-RAD 2 BENIGN There is no mammographic evidence of malignancy. A 1 year screening mammogram is recommended. The patient has been or will be contacted. The patient will be entered into a reminder system with a target due date of 1 year for her next screening exam. Electronically signed by: Woody Escalante M.D. nh/:02/24/2016 09:11:20 Senior Accountant Analyst: Yolette VILLEGAS(Nate)(M), [facility] letter sent: Normal Exam Reading location: [facility] BI-RADS: 2 Benign Procedure Note Woody Escalante MD - 02/25/2016 - STEPHEN SCREENING BILATERAL DIGITAL W CAD BILATERAL DIGITAL SCREENING MAMMOGRAM WITH CAD WITH MEDIOLATERAL OBLIQUE CRANIOCAUDAL: 02/22/2016 The study was acquired using digital technology and interpreted from soft copy. Current study was also evaluated with ICAD version 7.2. CLINICAL: Routine screening. Patient has no complaints. Previous history of cervical cancer. No family history of breast cancer. COMPARISONS: Comparison is made to exams dated: 12/25/2014 [facility] and 03/14/2012 [facility]. BREAST TISSUE: The tissue of both breasts is heterogeneously dense, which may obscure small masses. FINDINGS: There are benign appearing calcifications in the right breast. No significant masses, calcifications, or other findings are seen in either breast. There has been no significant interval change. IMPRESSION: BI-RAD 2 BENIGN There is no mammographic evidence of malignancy. A 1 year screening mammogram is recommended. The patient has been or will be contacted. The patient will be entered into a reminder system with a target due date of 1 year for her next screening exam. Electronically signed by: Woody Escalante M.D. nh/:02/24/2016 09:11:20 Senior Accountant Analyst: Yolette VILLEGAS(R)(M), [facility] letter sent: Normal Exam Reading location: [facility] BI-RADS: 2 Benign us Carlos Enrique Swain MD IMG MAMMO ORDERABLES Final Re sult * HM COLONOSCOPY (09/03/2014) us Marc Charles DO PROCEDURE/MINOR SURGICAL ORDERA BLES Final Result from Last 3 Months or Most Recently Relevant to Health Maintenance Insurance MEDICAID [employer] Care Teams Veterinarian Small Animal Relationship Specialty Start Date End Date Carlos Enrique Swain MD [address] [place] [address] PCP - General Internal Medicine 11/04/15 Fortino Trejo MD [address] [facility] [address] [place] [address] Otolaryngology 01/21/16
--- OUTSIDE RECORDS SUMMARY | 2025-01-19 09:26 | XMS_ITS | Encounter Summary ---
Author Organization [facility] Address [address] [place] [address] Phone Care Team Providers Care Furniture Servicer Name Role Phone Carlos Enrique Swain MD Primary Care Provider [phone] Encounter Details Date Type Department Care Team (Latest Contact Info) Description 12/16/2020 Orders Only [facility] Scanning, Provider Social History Tobacco Use Types Packs/Day Years Used Date Smoking Tobacco: Never Alcohol Use Standard Drinks/Week Comments No 0 (1 standard drink = 0.6 oz pur e alcohol) Comments Unknown Sex and Gender Information Value Date Recorded Sex Assigned at Not on file Legal Sex Female 8:12 AM HOSIERY LOOPER Gender Identity Female 02/04/2021 10:40 AM CDT Sexual Orientation Straight 02/04/2021 10 :40 AM CDT documented as of this encounter Plan of Treatment Not on file documented as of this encounter Procedures Procedure Name Priority Date/Time Associated Diagnosis Comments SCAN - LABS 12/16/2020 documented in this encounter Results * SCAN - LABS (12/16/2020) us Provider Scanning Edited Result - Final documented in this encounter Visit Diagnoses Not on filedocumented [...] documented as of this encounter Care Teams Furniture Servicer Relationship Specialty Start Date End Date Carlos Enrique Swain MD [address] [place] [address] PCP - General Internal Medicine 07/30/20 documented as of this encounter
--- OUTSIDE RECORDS SUMMARY | 2025-01-19 09:26 | XMS_ITS | Encounter Summary ---
Author Organization [facility] Address [address] [facility] [place] [address] Phone Care Team Providers Care Sole Conditioner Name Role Phone Carlos Enrique Swain MD Primary Care Provider [phone] Fortino Trejo MD Unavailable Unavaila ble Reason for Referral * PT/OT/ST (Routine) - Open Specialty Diagnoses / Procedures Referred By Joyce nicholson Referred To Contact Physical Therapy Diagnoses Cervical spondylosis Carlos Enrique Swain MD [address] [place] [address] Phone: tel: fax: [facility] [address], [address] [address] Phone: tel: fax: Referral ID Status Reason Start Date Expiration Date Visits Re quested Visits Authorized [id number] Open 01/03/2025 50 50 Scheduling Instructions Encounter Details Date Type Department Care Team (Late st Contact Info) Description 01/03/2025 Transcribe Orders [facility] [address] [place] [address] Carlos Enrique Swain MD [address] [place], [place] [phone] Cervical spondylosis (Primary Dx) Social History Tobacco Use Types Packs/Day Years [...] 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 Not on file Not on file documented as of this encounter Plan of Treatment Upcoming Encounters Date Type Department Care Team (Late st Contact Info) Description 01/23/2025 4:00 PM CDT Physical [facility] [address] [facility], [address] [address] Carlos Enrique Swain MD [address] [place], [place] [phone] Rico Franco, SPRINKLER TRUCK DRIVER [place] Discharge Disposition: Discharged to home or Selfcare 01/25/2025 1:45 PM CDT Physical Therapy [facility] [address], [address] [address] Carlos Enrique Swain MD [address] [place] [address] Rico Franco, SPRINKLER TRUCK DRIVER [place] 01/30/2025 2:00 PM CDT Physical Therapy [facility] [address], [address] [address] Carlos Enrique Swain MD [address] [place], [place] [phone] Tamika Louis PT [place] 02/01/2025 1:45 PM CDT Physical Therapy [facility] [address] [facility], [address] [place] [address] Carlos Enrique Swain MD [address] [place] [address] Rico Franco, SPRINKLER TRUCK DRIVER [place] 02/06/2025 8:30 AM CDT [facility] [address], [address] [place] [address] Carlos Enrique Swain MD [address] [facility] [address] [place], [place] [phone] Rico Franco, SPRINKLER TRUCK DRIVER [place] 02/08/2025 2:45 PM CDT [facility] [address], [address] [address] Carlos Enrique Swain MD [address] [place] [address] Tamika Louis, PT [place] 02/13/2025 1:45 PM CDT [facility] [address], [address] [phone] Carlos Enrique Swain MD [address] [place] [address] Rico Franco, SPRINKLER TRUCK DRIVER [place] 02/15/2025 1:45 PM CDT [facility] [address], [facility] [address] [place] [address] Carlos Enrique Swain MD [address] [place] [address] Rico Franco, SPRINKLER TRUCK DRIVER [place] 02/20/2025 2:45 PM CDT Physical Therapy [facility] [address], [address] [place] [address] Carlos Enrique Swain MD [address] [place] [address] Tamika Louis, PT [place] 02/22/2025 2:00 PM CDT Physical Therapy [facility] [address] [place] [address] Carlos Enrique Swain MD [address] [facility] [address] [place] [address] Tamika Louis, PT [place] 02/27/2025 2:00 PM CDT Physical Therapy [facility] [address] [facility], [address] [address] Carlos Enrique Swain MD [address] [facility] [address] [place] [address] Tamika Louis, PT [place] Scheduled Referrals Name Type Priority Associated Diagnoses Orde r Schedule PHYSICAL THERAPY REFERRAL Outpatient Referral Routine Cervical spondylosis Expected: 01/03/2025, Expires: 01/03/2026 documented as of this encounter Visit Diagnoses Diagnosis Cervical spondylosis- Primary Cervical spondylosis without myelopathy documented in this encounter Care Teams Sole Conditioner Relationship Specialty Start Date End Date Carlos Enrique Swain MD [address] [place] [address] PCP - General Internal Medicine 11/04/15 Fortino Trejo MD [address] [place] [address] Otolaryngology 01/21/16 documented as of this encounter
--- OUTSIDE RECORDS SUMMARY | 2025-01-19 09:26 | XMS_ITS | Clinical Summary ---
Author Organization [facility] Address [address] [place] [address] Care Team Providers Care Slot Supervisor Name Role Phone Carlos Enrique Hernandez MD Primary Care Provider [phone] Allergies Active Allergy Reactions Criticality Noted Date Comments Ciprofloxacin Chest pressure,Rash,Other (see comment),Shortness of Breath High 03/03/2007 Tightness in chest Reaction: tight chest, HTN, Codeine Other (see comment),Unknown 02/16/2022 Nausea/vomiting/johnny rrhea Hydrocodone Dizziness,GI Upset,Headache,Nausea and Vomiting,Other (see comment) Low 01/14/2021 Headache/nausea/ vomiting/diarrhea Meperidine Other (see comment) 01/02/2025 Nausea/vomiting/johnny rrhea,headache Metformin And Related Diarrhea,GI Upset Low 020 Verapamil Other (see comment),Rash Low 01/03/2012 Skin rash/hives Reaction: rash, Medications magnesium 250 MG tablet Take 2 tablets (500 mg total) by mouth daily. Active levothyroxine (SYNTHROID) 112 MCG tablet Take 1 tablet (112 mcg total) by mouth daily. 4 Active ibuprofen (MOTRIN) 800 MG tablet Take 1 tablet (800 mg total) by mouth. Active Flaxseed, Linseed, (FLAX SEED OIL) 1000 MG capsule Take by mouth daily. Active Vitamin B12 100 MCG tablet Vitamin B12 [id number] [id number]-Ccpctive Active vitamin D3, cholecalciferol, 125 mcg capsule Take 1 capsule (5,000 Units total) by mouth. Active Berberine-RedIso GadduEhe-S-R (OSTERA) Tab Take by mouth Active B Complex Vitamins (VITAMIN B-COMPLEX) Tab Take 1 tablet by mouth daily. Active cyclobenzaprine (FLEXERIL) 10 MG tabletIndication s:Cervical spondylosis Take 1 tablet (10 mg total) by mouth 2 (two) times daily as needed for Muscle Spasms. 60 tablet 5 02/02/20 25 Active ezetimibe (ZETIA) 10 MG tabletIndication s:Carotid artery plaque, left Take 1 tablet (10 mg total) by mouth daily. 90 tablet Active LORazepam (ATIVAN) 0.5 MG tabletIndication s:Claustrophobia Take 1 tablet (0.5 mg total) by mouth once for 1 dose. 1 tablet 5 01/11/20 Active Problems Problem Noted Date Diagnosed Date Claustrophobia 01/10/2025 Cervical spondylosis 01/04/2025 Assessment & Plan (01/04/2025 4:18 PM CDT): -Progressively worsening -Will check x-ray of cervical spine and try to get MRI as well -Patient is willing to go for physical therapy Atherosclerosis of left carotid artery Overview (01/08/2025): On xray -ordered carotid us 12/2024-mild plaque<50% stenosis /recommended asa /statin History of colonic polyps 01/14/2022 Overview (01/02/2025): Added automatically from request for surgery [id number] Essential hypertension 05/20/2015 Assessment & Plan (01/04/2025 4:21 PM CDT): -Patient is not on any medication following intentional weight loss/patient also has normal home blood pressure recording-advised patient to bring home blood pressure recording -Will reassess with the next follow-up and consider to restart medication -Patient was on metoprolol in the past Hypothyroidism 05/20/2015 Assessment & Plan (01/04/2025 4:19 PM CDT): -Continue levothyroxine -Will check labs Osteoarthritis 05/20/2015 Lumbar spinal stenosis 01/02/2015 Encounters Date Type Department Care Team Description 01/11/2025 Orders Only [facility] [address] [phone] Carlos Enrique Hernandez MD 01/10/2025 Telephone [facility] [address] [address] Carlos Enrique Hernandez MD Stress Test 01/10/2025 Orders Only [facility] [address] [address] Carlos Enrique Hernandez MD 01/08/2025 7:00 AM CDT - 01/08/2025 11:05 AM CDT Hospital Encounter [facility] [place] [address] Carlos Enrique Hernandez MD Discharge Disposition: Home or Self Care (Routine Discharge) 01/08/2025 Travel 01/03/2025 Telephone [facility] [address] [phone] Carlos Enrique Hernandez MD MRI (SCAN); Medication Request 01/03/2025 Orders Only [facility] [address] [address] Carlos Enrique Hernandez MD 01/02/2025 3:30 PM CDT - 01/02/2025 11:59 PM CDT Hospital Encounter [facility] [address] [place] [id number] Carlos Enrique Hernandez MD Discharge Disposition: Home or Self Care (Routine Discharge) 01/02/2025 2:20 PM CDT Office Visit [facility] [address] [phone] Carlos Enrique Hernandez MD Meet and Greet Provider 01/02/2025 Travel from Last 3 Months Family History Medical History Relation Comments Cancer Father Hypertension Father Glaucoma Maternal Grandfather Stroke Maternal Grandmother Hypertension Mother Relation Status Comments Father Maternal Grandfather Maternal Grandmother Mother Social History Tobacco Use Types Packs/Day Years Used Date Smoking Tobacco: Never Smokeless Tobacco: Never Tobacco Cessation:Counseling Given: Not Answered Comments Unknown Sex and Gender Information Value Date Recorded Sex Assigned at Female 12/26/2024 12:11 PM CDT Legal Sex Female 6:06 PM CDT Gender Identity Not on file Sexual Orientation Not on file Last Filed Vital Signs Vital Sign Reading Time Taken Comments Blood Pressure 150/93 01/02/2025 3:16 PM CDT Pulse 85 01/02/2025 2:34 PM CDT Temperature 37.1 C (98.7 F) 01/02/2025 2:34 PM CDT Respiratory Rate 17 01/02/2025 2:34 PM CDT Oxygen Saturation 92% 01/02/2025 2:34 PM CDT Inhaled Oxygen Concentration - - Weight 124.3 kg (274 lb) 01/02/2025 2:34 PM CDT Height 172.7 cm (5' 8 ) 01/02/2025 2:34 PM CDT Body Mass Index 41.66 01/02/2025 2:34 PM CDT Plan of Treatment Upcoming Encounters Date Type Department Care Team (Late st Contact Info) Description 01/26/2025 2:15 PM CDT Appointment [facility] [address] [place] [address] [place] [address] [facility] [address] [place] [id number] 02/05/2025 11:20 AM CDT Office Visit [facility] - [address] [address] [place] [address] [facility] [address] [place] [id number] Health Maintenance Due Date Last Done Comments ASCVD Statin 1965 Colorectal Cancer Screening Colonoscopy (10 Years) 1965 Annual Physical 01/04/1967 Hepatitis C 01/04/1982 Zoster Vaccines (1 of 2) 01/04/2014 ASCVD LDL 11/21/2016 11/21/2015 Cervical Cancer Screening Pa p Smear (Age 30 to 64) Every 3 Years 02/02/2020 02/01/2017 Cervical Cancer Screening Pa p with HPV Testing (Age 30 to 64) Every 5 Years 02/01/2022 02/01/2017 Cervical Cancer Screening wi th HPV 02/01/2022 RSV Immunization or 60+ Years (1 - Risk 60-74 years 1-dose series) 2024 COVID-19 Vaccine (1 - 2023-2 5 season) 2024 PHQ-2 (Physician [place]) 10/11/2024 Mammogram Screening 11/11/2025 11/11/2023, 08/20/2016, 02/22/2016 DTaP, Tdap and Td Vaccines ( 2 - Td or Tdap) 01/26/2028 01/25/2018 Meningococcal B Vaccine Aged Out No l onger eligible based on patient's age to complete this topic Meningococcal Vaccine Aged Out No indu claudia eligible based on patient's age to complete this topic Pneumococcal Vaccine: Pediatrics (0 to 5 Years) and At-Risk Patients (6 to 64 Years) Aged Out No longer eligible b ased on patient's age to complete this topic RSV Immunizations Under 20 Months Aged Out No longer eligible b ased on patient's age to complete this topic Procedures Procedure Name Priority Date/Time Associated Diagnosis Comments USV CAROTID DUPLEX PAMELA ROXIE 01/08/2025 7:49 AM CDT Carotid artery stenosis XR CERV SPINE 3V Routine 01/02/2025 3:53 PM CDT Cervical spondylosis LIPID PANEL Routine 11/21/2015 7:51 PM MIXED ANIMAL VETERINARIAN from Last 3 Months or Most Recently Relevant to Health Maintenance Results * USV CAROTID DUPLEX PAMELA (01/08/2025 7:49 AM CDT) Anatomical Region Laterality Modality Neck Vascular Ultraso und 01/08/2025 7:30 AM CDT Narrative 01/08/2025 9:41 AM CDT CAROTID ARTERY DUPLEX IMAGING VASCULAR LAB Pat.Name: CELE WAGGONER Pat.ID: [id number] .Date: 01/08/2025 Refer.MD: Carlos Enrique Hernandez Exam Time: 7:30:00 AM Study Type:TEAGAN VS Duplex Carotid BI Age: 3 1965,60Y Sex: F Sonogrphr: Sunshine Patel, Simón Pat. Stat.:Outpatient History / Clinical:Carotid calcifications on xray factors Procedures: Combs scale, Color Doppler imaging, Doppler Spectral Analysis Race: W ++++++++++++++++++++++++++++++++++++ SUMMARY: ++++++++++++++++++++++++++++++++++++ St E's Carotid Criteria 50-69% = PSV 180-230 and/or Ratio 2.0 - 4.0 >70% = PSV >230 and Ratio >4.0 or EDV >100 Stent Criteria >80% = PSV >340 and Ratio >4.0 Right side: The right bifurcation-internal carotid artery has mild plaque. Internal carotid maximum velocity is 77 cm/s, with a ratio of 1.03 . The common carotid artery has no plaque present. The external carotid artery has no plaque proximally. Vertebral artery flow is antegrade. Left side: The left bifurcation-internal carotid artery has mild plaque. Internal carotid maximum velocity is 102 cm/s , with a ratio of 1.29 . The common carotid artery has no plaque present. The external carotid artery has no plaque proximally. Vertebral artery flow is antegrade. CONCLUSION: There is mild plaque in the bilateral internal carotid arteries with <50% stenosis. Vertebral flow is antegrade bilaterally. ++++++++++++++++++++++++++++++++++++ MEASUREMENTS: ++++++++++++++++++++++++++++++++++++ DOPPLER Right Prox CCA Prox CCA PSV 87.6 cm/s Right Dist CCA Dist CCA PSV 75.1 cm/s Right Prox ICA Prox ICA PSV 68.4 cm/s Right Mid ICA Mid ICA PSV 77.1 cm/s Right Dist ICA Dist ICA PSV 77.1 cm/s Right Prox ECA Prox ECA PSV 77.1 cm/s Right Vertebral Vertebral PSV 51 cm/s Right ICA/CCA RATIO ICA/CCA RATIO P 1.03 Left Prox CCA Prox CCA PSV 79.9 cm/s Left Dist CCA Dist CCA PSV 79 cm/s Left Prox ICA Prox ICA PSV 86.7 cm/s Left Mid ICA Mid ICA PSV 102 cm/s Left Dist ICA Dist ICA PSV 101 cm/s Left Prox ECA Prox ECA PSV 106 cm/s Left Vertebral Vertebral PSV 56.8 cm/s Left ICA/CCA RATIO ICA/CCA RATIO P 1.29 Internal Carotid Artery Left Internal C 0 <Electronic Signature> 01/08/2025 09:41 AM Jas Price M.D. Procedure Note Jas Price MD - 01/08/2025 CAROTID ARTERY DUPLEX IMAGING VASCULAR LAB Pat.Name: CELE WAGGONER Sandra Pat.ID: [id number] St.Date: 01/08/2025 Refer.MD: Carlos Enrique Hernandez Exam Time: 7:30:00 AM Study Type:TEAGAN VS Duplex Carotid BI Age: 2 1965,60Y Sex: F [facility]ogrphr: Sun[facility] Pat. Stat.:Outpatient History / Clinical:Carotid calcifications on xray factors Procedures: Combs scale, Color Doppler imaging, Doppler Spectral Analysis Race: W ++++++++++++++++++++++++++++++++++++ SUMMARY: ++++++++++++++++++++++++++++++++++++ St E's Carotid Criteria 50-69% = PSV 180-230 and/or Ratio 2.0 - 4.0 >70% = PSV >230 and Ratio >4.0 or EDV >100 Stent Criteria >80% = PSV >340 and Ratio >4.0 Right side: The right bifurcation-internal carotid artery has mild plaque. Internal carotid maximum velocity is 77 cm/s, with a ratio of 1.03 . The common carotid artery has no plaque present. The external carotid artery has no plaque proximally. Vertebral artery flow is antegrade. Left side: The left bifurcation-internal carotid artery has mild plaque. Internal carotid maximum velocity is 102 cm/s , with a ratio of 1.29 . The common carotid artery has no plaque present. The external carotid artery has no plaque proximally. Vertebral artery flow is antegrade. CONCLUSION: There is mild plaque in the bilateral internal carotid arteries with <50% stenosis. Vertebral flow is antegrade bilaterally. ++++++++++++++++++++++++++++++++++++ MEASUREMENTS: ++++++++++++++++++++++++++++++++++++ DOPPLER Right Prox CCA Prox CCA PSV 87.6 cm/s Right Dist CCA Dist CCA PSV 75.1 cm/s Right Prox ICA Prox ICA PSV 68.4 cm/s Right Mid ICA Mid ICA PSV 77.1 cm/s Right Dist ICA Dist ICA PSV 77.1 cm/s Right Prox ECA Prox ECA PSV 77.1 cm/s Right Vertebral Vertebral PSV 51 cm/s Right ICA/CCA RATIO ICA/CCA RATIO P 1.03 Left Prox CCA Prox CCA PSV 79.9 cm/s Left Dist CCA Dist CCA PSV 79 cm/s Left Prox ICA Prox ICA PSV 86.7 cm/s Left Mid ICA Mid ICA PSV 102 cm/s Left Dist ICA Dist ICA PSV 101 cm/s Left Prox ECA Prox ECA PSV 106 cm/s Left Vertebral Vertebral PSV 56.8 cm/s Left ICA/CCA RATIO ICA/CCA RATIO P 1.29 Internal Carotid Artery Left Internal C 0 <Electronic Signature> 01/08/2025 09:41 AM Jas Price M.D. Carlos Enrique Hernandez MD VASC Final Result * XR CERV SPINE 3V (01/02/2025 3:53 PM CDT) Anatomical Region Laterality Modality Spine Radiographic Katarina ging 01/03/2025 8:25 AM CDT Impressions 01/03/2025 8:39 AM CDT ===== Impression: ===== 1. Osteoarthritis and degenerative disc disease of cervical spine. 2. Atherosclerotic disease of the left carotid artery. Ordered By: CARLOS ENRIQUE HERNANDEZ Interpreted By: Rico Badillo MD, 01/03/2025 8:25 AM Narrative 01/03/2025 8:39 AM CDT [address] [place] [address] Examination: Cervical spine x-rays Exam Date/Time: 01/02/2025 3:43 PM Reason For Exam: cervical spondylosis Comparison: None Technique: AP, lateral, and odontoid views of the cervical spine are obtained. Findings: Spurring the cervical spine is seen. Disc space narrowing C4-5 C5-C6 C6-7 and C7-T1 is noted. There is no compression deformity or spondylolisthesis. Vascular calcifications are noted. Findings are suspicious for atherosclerotic change. This is seen in the region the left carotid artery Procedure Note Rico Badillo MD - 01/03/[address] [place] [address] Examination: Cervical spine x-rays Exam Date/Time: 01/02/2025 3:43 PM Reason For Exam: cervical spondylosis Comparison: None Technique: AP, lateral, and odontoid views of the cervical spine areobtained. Findings: Spurring the cervical spine is seen. Disc space narrowing C4-5C5-C6 C6-7 and C7-T1 is noted. There is no compression deformity orspondylolisthesis. Vascular calcifications are noted. Findings are suspicious foratherosclerotic change. This is seen in the region the left carotidartery ===== Impression: ===== 1. Osteoarthritis and degenerative disc disease of cervical spine. 2. Atherosclerotic disease of the left carotid artery. Ordered By: CARLOS ENRIQUE HERNANDEZ Interpreted By: Rico Badillo MD, 01/03/2025 8:25 AM us Carlos Enrique Hernandez MD GENERAL IMAGING Final Result * (ABNORMAL) LIPID PANEL (11/21/2015 7:51 PM MIXED ANIMAL VETERINARIAN) DIRECT LDL 187(H) 0 - 129 MG/DL [facility] TO EPIC CONVERSION Comment:Result Comment: 160- 189 HIGH HDL 50 >39 MG/DL [facility] T O EPIC CONVERSION Comment:Result Comment: NORM AL: 40-60 CHOLESTEROL 258(H) 0 - 200 MG/DL [facility] TO EPIC CONVERSION Comment:Result Comment: HIGH : > OR = 240 TRIGLYCERIDES 193(H) 0 - 149 MG/DL [facility] TO EPIC CONVERSION Comment:Result Comment: 150- 199 BORDERLINE HIGH 11/21/2015 7:51 PM MIXED ANIMAL VETERINARIAN 11/21/2015 7:51 PM MIXED ANIMAL VETERINARIAN Narrative [facility] TO EPIC CONVERSION - 11/21/2015 8:45 PM MIXED ANIMAL VETERINARIAN [id number] 10:50AM by Julia Malik: to be addressed by PCP Result Communication: No patient communication needed at this time us Julia Malik MD LABORATORY Final Resul t [facility] TO EPIC CONVERSION from Last 3 Months or Most Recently Relevant to Health Maintenance Insurance MEDICAID Care Teams Slot Supervisor Relationship Specialty Start [place] [address] [place] [address] PCP - General INTERNAL MEDICINE 12/26/24
--- OUTSIDE RECORDS SUMMARY | 2025-01-19 09:26 | XMS_ITS | Clinical Summary ---
Author Organization [facility] Address [address] [place] [address] Care Team Providers Care Cooker Sulfate Name Role Phone Carlos Enrique Swain MD Primary Care Provider [phone] Source Comments [facility],non-owned Affiliates and Associated Physician Practices is amultiple site organization consisting of ambulatory clinics and hospital sitesin [place], [place], [place] and [place]. This disclosure is being madepursuant to the Care Everywhere program and may not contain all information available regarding this patient. Last updated 18.[facility] Social History Tobacco Use Types Packs/Day Years Used Date Smoking Tobacco: Never Assessed Sex and Gender Information Value Date Recorded Sex Assigned at Not on file Gender Identity Not on file Sexual Orientation Not on file Last Filed Vital Signs Vital Sign Reading Time Taken Comments Blood Pressure 138/82 02/01/2017 3:51 PM CDT Pulse 84 01/27/2016 2:12 PM CDT Temperature - - Respiratory Rate - - Oxygen Saturation - - Inhaled Oxygen Concentration - - Weight 120.7 kg (266 lb) 02/01/2017 3:51 PM CDT Height 172.7 cm (5' 8 ) 02/01/2017 3:51 PM CDT Body Mass Index 40.45 02/01/2017 3:51 PM CDT Plan of Treatment Health Maintenance Due Date Last Done Comments COLOGUARD (AGES 45-75) - COLON CA SCREENING 1965 COLON MONITORING 1965 COLONOSCOPY - COLON CA SCREENING 1964 CT COLONOGRAPHY - COLON CA SCREENING 1965 Colorectal Cancer Screening 1965 FIT - COLON CA SCREENING 1965 FLEX SIG - COLON CA SCREENING 1965 LIPID TESTING 1965 MAMMOGRAM 1965 HIV SCREENING 01/04/1979 HEPATITIS C SCREENING 12/31/1981 DTAP/TDAP/TD VACCINES (1 - Tdap) 01/04/1983 PNEUMOCOCCAL VACCINE 50+ (1 of 1 - PCV) 01/04/2014 ZOSTER VACCINE (1 of 2) 01/04/2014 PAP SMEAR 02/02/2020 02/01/2017, 11/0 04/2016, 01/27/2016, Additional history exists COVID-19 VACCINE ( - 2023- season) 2024 DEPRESSION SCREENING 10/11/2024 INFLUENZA VACCINE (Season Ended) 2025 Respiratory Syncytial Virus (RSV) Vaccine Pt: or over 60 yrs (1 - 1-dose 75+ series) 01/04/2039 HEPATITIS B VACCINE Aged Out No longe r eligible based on patient's age to complete this topic HIB VACCINE Aged Out No longer eligi ble based on patient's age to complete this topic HPV VACCINE Aged Out No longer eligi ble based on patient's age to complete this topic MENINGOCOCCAL (Group B) VACCINE SHARED DECISION-MAKING Aged Out No longer eligible based on patient's age to complete this topic MENINGOCOCCAL GROUPS A/C/Y/W VACCINE Aged Out No longer eligible based on patient's age to complete this topic PNEUMOCOCCAL VACCINE Aged Out No long er eligible based on patient's age to complete this topic Procedures Procedure Name Priority Date/Time Associated Diagnosis Comments PAP IMAGE-GUIDED W HPV Routine 02/01/2017 12:00 AM CDT from Last 3 Months or Most Recently Relevant to Health Maintenance Results * PAP IMAGE-GUIDED LIQUID BASE W HPV (02/01/2017 12:00 AM CDT) Pap Image-Guided Liquid-Based with HPV Accession No: [id number] Specimen:Endocervi nirav ThinPrep Slides:1 SPECIMEN ADEQUACY: SATISFACTORY FOR EVALUATION - No Endocervical / Transformation Zone Component Present INTERPRETATION: NEGATIVE FOR INTRAEPITHELIAL LESION OR MALIGNANCY OTHER FINDINGS: - Predominance of coccobacilli consistent with a shift in vaginal millie NOTE(S): HPV DIRECT - HPV Result to Follow This specimen was evaluated by the ThinPrep Imaging System along with an additional manual rescreening by a sustainable agriculture faculty and/or pathologist Interpretation performed by Karli ALEJO (ASCP). Electronically signed 02/05/2017 [facility] Endocervical 02/01/2017 02/04/2017 8 :55 AM CDT Jose Barclay MD LAB - PATHOLOGY/CYTO LOGY ORDERABLES [facility] from Last 3 Months or Most Recently Relevant to Health Maintenance Care Teams Cooker Sulfate Relationship Specialty Start Date End Date Carlos Enrique Swain MD [address] [place] [address] PCP - General 05/17/19
--- OUTSIDE RECORDS SUMMARY | 2025-01-19 09:27 | XMS_ITS | Referral Summary ---
Author Organization [address] Address [address] [place] [address] Care Team Providers Care Abstracter Name Role Phone Marcy Hernandez MD Primary Care Provider [phone] Allergies Active Allergy Reactions Criticality Noted Date Comments Ciprofloxacin Other (See comments) Reaction: tight chest, HTN, Codeine Unknown 02/16/2022 Hydrocodone Dizziness,Stomach upset Low 01/14/2021 Metformin Diarrhea Low 02/05/2021 Verapamil Rash Reaction: rash, Medications levothyroxine sodium (TIROSINT) 112 mcg capsule Take 1 capsule (112 mcg total) by mouth pr specialist before breakfast Active triamterene-hyd roCHLOROthiazid e (triamterene-hy droCHLOROthiazi de) 37.5-25 mg per tablet/capsule Take 1 tablet/capsule by mouth daily Active vitamin b complex tablet Take 1 tablet by mouth daily Active vit D3-vit V-hpotfaodg-vvr s [id number] qbzq-ykb-ga-mg tablet Take by mouth Active metoprolol tartrate (LOPRESSOR) 75 mg tablet immediate release tablet Take 1 tablet (75 mg total) by mouth 2 (two) times a day 1 Active omega 1-hrd-sbz-fish oil (Fish Oil) 100-160-1,000 mg capsule 0 Active glucosamine/cho ndr calvin A sod (glucosamine-ch ondroitin) 1,500-1,200 mg/30 mL liquid 0 Active famotidine (PEPCID) 20 mg tablet 1 Active rosuvastatin (CRESTOR) 10 mg tablet Take 1 tablet (10 mg total) by mouth daily 3 Active magnesium gluconate 200 mg tabletIndicatio ns:hypomagnesem ia 1 tablet (200 mg total) Active Active Problems Problem Noted Date Diagnosed Date Irritable bowel syndrome with diarrhea 3 Assessment & Plan (02/01/2023 3:47 PM CDT): Add fruit tid and viberzi 100 bid Return 4 weeks Personal history of colonic polyps 01/14/2022 Overview (01/14/2022): Added automatically from request for surgery [id number] Abnormal nuclear cardiac imaging test 08/15/2021 Morbid obesity 04/10/2021 Major depressive disorder, s shena episode, in full remission 04/10/2021 Esophageal reflux 08/18/2020 Fatty liver 08/18/2020 Hypothyroidism 08/18/2020 Assessment & Plan (08/18/2020 10:41 PM CHIEF HOSPITAL ADMINISTRATOR): Labs. Essential hypertension 08/18/2020 Assessment & Plan (08/18/2020 10:41 PM CHIEF HOSPITAL ADMINISTRATOR): Reviewed role of diet, exercise, weight loss in controlling blood pressure. Recommended low sodium/DASH diet. Continue current medications. OA (osteoarthritis) 08/18/2020 Assessment & Plan (08/18/2020 10:22 PM CHIEF HOSPITAL ADMINISTRATOR): Discussed potential for diminished pain, improved function and reduced progression with weight loss. Weight loss counseling, encounter for 08/18/2020 Assessment & Plan (04/30/2021 10:06 PM CDT): Reviewed calorie restriction based on BMR as previously detailed. Reviewed recommendation/goal of >/= 150 minutes/week moderate-intensity aerobic exercise. Asked to keep detailed food diary for at least 1 week and bring to next visit and/or continue tracking on phone. Assessment & Plan (04/17/2021 11:48 AM CDT): Reviewed calorie restriction based on BMR as previously detailed. Reviewed recommendation/goal of >/= 150 minutes/week moderate-intensity aerobic exercise. Asked to keep detailed food diary for at least 1 week and bring to next visit and/or continue tracking on phone. Assessment & Plan (01/14/2021 4:09 PM CDT): Reviewed calorie restriction based on BMR as previously detailed. Reviewed recommendation/goal of >/= 150 minutes/week moderate-intensity aerobic exercise. Assessment & Plan (12/17/2020 2:13 PM CHIEF HOSPITAL ADMINISTRATOR): Reviewed calorie restriction based on BMR as previously detailed. Reviewed recommendation/goal of >/= 150 minutes/week moderate-intensity aerobic exercise. Asked to keep detailed food diary for at least 1 week and bring to next visit and/or continue tracking on phone. Assessment & Plan (08/18/2020 10:40 PM CHIEF HOSPITAL ADMINISTRATOR): Discussed that weight loss will require calorie deficit. Calculated basal metabolic rate and estimated total energy expenditure; discussed 500-1000 kcal/day deficit to lose 1-2 lb per week. Asked to keep detailed food diary for at least 1 week and bring to next visit. Discussed relatively small, although significant, role of exercise in weight loss; greater importance in weight maintenance as shown in [employer] study and National Weight Control Registry. Discussed recommendation/goal for 150 minutes per week moderate-intensity aerobic exercise. Class 3 severe obesity due t o excess calories with serious comorbidity and body mass index (BMI) of 50.0 to 59.9 in adult 08/18/2020 Assessment & Plan (04/30/2021 10:08 PM CDT): Obesity is improving. Diet interventions: as noted. Regular aerobic exercise program discussed. Pharmacotherapy as ordered. Pursuing bariatric surgery. Assessment & Plan (04/17/2021 11:50 AM CDT): Obesity is improving with lifestyle modifications. Commended on weight loss to date and discussed anticipated health benefits/risk reduction with this degree of loss. Diet interventions: as noted. Regular aerobic exercise program discussed. Pursuing bariatric surgery. Assessment & Plan (01/21/2021 10:41 PM CDT): Obesity is unchanged. Diet interventions: as noted. Regular aerobic exercise program discussed. Pharmacotherapy as ordered. Discussed options and will add topiramate. Discussed risks, benefits, alternatives, potential side effects. Assessment & Plan (01/14/2021 4:32 PM CDT): Obesity is unchanged. Diet interventions: as noted. Regular aerobic exercise program discussed. Considering bariatric surgery -- gave info for attending seminar. Abnormal blood chemistry 08/18/2020 Fatigue 08/18/2020 Assessment & Plan (08/18/2020 10:41 PM CHIEF HOSPITAL ADMINISTRATOR): Labs. Discussed importance of adequate sleep; good sleep hygiene in controlling weight as well as for overall health. Metabolic and nutritional disorder 08/18/2020 Overview (04/30/2021): Elevated insulin level. Assessment & Plan (04/30/2021 10:07 PM CDT): Continue low-carb (<150 g/day), low-glycemic diet. Reviewed labs. Discussed options and will add GLP-1 analog. Discussed risks, benefits, alternatives, potential side effects. No personal or family history of MTC or MEN2. Reviewed dosing/titration; reviewed proper administration using demo pen; reviewed appropriate storage. Referred to websites for additional instructions/info/video. Start semaglutide. Assessment & Plan (04/17/2021 11:49 AM CDT): Continue low-carb (<150 g/day), low-glycemic diet. Will hold off on trying to get Ozempic approved pending add'l information about possible timing of surgery. Assessment & Plan (01/14/2021 4:30 PM CDT): She will forward labs. Continue low-carb (<150 g/day), low-glycemic diet. Consider GLP-1 RA. Assessment & Plan (01/21/2021 10:42 PM CDT): Labs -- check insulin/JAKE-IR. Continue low-carb (<150 g/day), low-glycemic diet. Assessment & Plan (08/18/2020 10:41 PM CHIEF HOSPITAL ADMINISTRATOR): Labs. Discussed insulin resistance including effect on weight and risk for progression to diabetes. Recommended low-carb, low-glycemic diet; choose whole grains and avoid more highly processed carbohydrates. Discussed potential benefits of this w/r/t gut microbiome. Referred to ADA and [facility] websites for additional information on topics including glycemic index/carbohydrate choices, protein sources. Lumbar spinal stenosis 09/18/2016 ORION (obstructive sleep apnea) 02/05/2016 Assessment & Plan (08/18/2020 10:42 PM CHIEF HOSPITAL ADMINISTRATOR): Discussed comorbidities associated with sleep apnea, including effects on weight, and stressed importance of adequate treatment if present. Recommended follow up with sleep medicine. Social History Tobacco Use Types Packs/Day Years Used Date Smoking Tobacco: Never Smokeless Tobacco: Never Tobacco Cessation:Counseling Given: Not Answered Alcohol Use Standard Drinks/Week Comments No 0 (1 standard drink = 0.6 oz pur e alcohol) AUDIT-C Answer Date Recorded Frequency of Alcohol Consumption Not on file 05/21/2021 Q2: How many drinks containi ng alcohol do you have on a typical day when you are drinking? 1 or 2 05/21/2021 Frequency of Binge Drinking Not on file 05/11 Personal Safety Answer Date Recorded Getting School Help Needed Not on file 09/21 Comments No Sex and Gender Information Value Date Recorded Sex Assigned at Not on file Legal Sex Female 8:12 AM CHIEF HOSPITAL ADMINISTRATOR Gender Identity Female 02/04/2021 10:40 AM CDT Sexual Orientation Straight 02/04/2021 10 :40 AM CDT Last Filed Vital Signs Vital Sign Reading Time Taken Comments Blood Pressure 118/84 06/02/2023 10:02 AM CDT Pulse 92 06/02/2023 10:02 AM CDT Temperature 36.9 C (98.4 F) 06/02/2023 10:02 AM CDT Respiratory Rate 18 06/02/2023 10:02 AM CDT Oxygen Saturation 96% 06/02/2023 10:02 AM CDT Inhaled Oxygen Concentration - - Weight 140.6 kg (310 lb) 06/02/2023 10:02 AM CDT Height 170.2 cm (5' 7 ) 06/02/2023 10:02 AM CDT Body Mass Index 48.55 06/02/2023 10:02 AM CDT Plan of Treatment Not on file Procedures Procedure Name Priority Date/Time Associated Diagnosis Comments DIAGNOSTIC MAMMOGRAM BILATERAL W BRYAN Schedule Routine, Read Routine (OP Routine) 11/11/2023 8:49 AM CHIEF HOSPITAL ADMINISTRATOR Subareolar mass of right breast Subareolar mass of left breast COLONOSCOPY 02/17/2022 7:30 AM CDT from Last 3 Months or Most Recently Relevant to Health Maintenance Results * Diagnostic Mammogram Bilateral W Bryan (11/11/2023 8:49 AM CHIEF HOSPITAL ADMINISTRATOR) Anatomical Region Laterality Modality Breast Bilateral Mammography 11/11/2023 9:38 AM CHIEF HOSPITAL ADMINISTRATOR Impressions 11/11/2023 9:38 AM CHIEF HOSPITAL ADMINISTRATOR 1. No suspicious findings are identified in either breast on mammogram or sonogram to account for patient's palpable lumps of concern. Continued monthly breast self examination is recommended. Any further management should be based on clinical assessment. 2. Benign minimally dilated ducts in the subareolar aspects of both breasts without intraductal masses. 3. No new suspicious findings identified in either breast on mammogram. Annual bilateral screening mammography recommended in 12 months. BI-RADS: 2 - Benign. I discussed the findings and recommendations with the patient at time of the examination. Electronically signed by: IVORY Winkler 11/11/2023 9:38 AM CHIEF HOSPITAL ADMINISTRATOR EXAMINATION: DIAGNOSTIC MAMMOGRAM BILATERAL W BRYAN, US BREAST BILATERAL LIMITED ORDERING HEALTHCARE PROVIDER: MARCY HERNANDEZ HISTORY: 58-year-old woman comes in today for evaluation of palpable lumps in both breasts. COMPARISON: 02/16/2022, 07/19/2019, 08/20/2016, 02/22/2016. TECHNIQUE: CC and MLO views of both breasts were obtained with digital technique using digital breast tomosynthesis with C view. Computer aided detection was utilized. Targeted sonographic examination of both breasts was performed real-time grayscale images and color Doppler. FINDINGS: MAMMOGRAPHIC FINDINGS: The breast tissue is heterogeneously dense, which may obscure small masses. Triangular markers were placed in both breasts over the areas of palpable concern, which are located in the subareolar aspects of both breasts, and at the 10 o'clock position of the right breast middle depth. No suspicious findings are seen in the vicinity of the markers. Benign microcalcifications are noted in both breasts without suspicious interval change. There are also grossly unchanged mildly dilated ducts in the subareolar aspects of both breasts. Overall, No new suspicious findings are seen in either breast on mammogram. SONOGRAPHIC FINDINGS: Targeted sonographic examination of the breasts is performed. At the 10 o'clock position of the right breast and CM from the nipple, corresponding to an area of concern, only benign fibroglandular and fatty tissue is seen without suspicious solid or cystic masses. Sonographic evaluation of the subareolar aspects of both breasts demonstrates only benign minimally dilated ducts without intraductal masses. us Marcy Hernandez MD IMG MAMMO PROCEDURES Final Re sult * COLONOSCOPY (02/17/2022 7:30 AM CDT) Anatomical Region Laterality Modality Other Narrative Procedure Note Smith Guzmán MD - 02/17/2022 7:30 AM CDT [facility] Patient Name: Cele Waggoner Procedure Date: 02/17/2022 7:30 AM Date of : 1965 Admit Type: Outpatient Age: 57 Gender: Female Attending MD: Smith Guzmán M.D. Room: [facility] ENDOSCOPY ROOM 2 Note Status: Finalized Patient Profile: Refer to note in patient chart for documentation of history and physical. Procedure: Colonoscopy Indications: High risk colon cancer surveillance: Personalhistory of colonic polyps, Last colonoscopy: 2013 Referring MD: Marcy Hernandez M.D. Providers: Smith Guzmán M.D. Impression: - Hemorrhoids found on perianal exam. - Diverticulosis in the sigmoid colon, in the transverse colon and at the hepatic flexure. - The examination was otherwise normal. - No specimens collected. Recommendation: - Discharge patient to home. - Resume previous diet. - Continue present medications. - Repeat colonoscopy in 5 years for surveillance. - Return to primary care physician as previously scheduled. Medicines: Propofol per Anesthesia Complications: No immediate complications. Estimated Blood Loss: Estimated blood loss: none. Procedure: Pre-Anesthesia Assessment: - This assessment was completed [Time ofAssessment] prior to the administration of sedation. The benefits, risks and alternatives of theprocedure and sedation were discussed and informed consentwas obtained. All questions were answered. Please referto the signed informed consent document in the medical record. The bowel preparation used was Miralax and bisacodyl tablets via single dose instruction. The scope was passed under direct vision. TheColonoscope [id number] was introduced through the anus and advanced to the the cecum, identified by appendiceal orifice and ileocecal valve. The colonoscopy was performed without difficulty. The patient tolerated the procedure well. The qualityof the bowel preparation was good. The entire colonwas examined. Findings: Hemorrhoids were found on perianal exam. Multiple small and large-mouthed diverticula were found in thesigmoid colon, transverse colon and hepatic flexure. The exam was otherwise without abnormality. Electronically signed by Smith Guzmán M.D. Smith Guzmán M.D. 02/17/2022 8:38:20 AM Number of Addenda: 0 Note Initiated On: 02/17/2022 7:30 AM Procedure Code(s): --- Professional --- G0105, Colorectal cancer screening; colonoscopy on individual at high risk Diagnosis Code(s): --- Professional --- K57.30, Diverticulosis of large intestine without perforation orabscess without bleeding K64.9, Unspecified hemorrhoids Z86.010, Personal history of colonic polyps CPT copyright 2020 [employer]. All rights reserved. The codes documented in this report are preliminary and upon residential support worker reviewmay be revised to meet current compliance requirements. Recognized by the [employer] for promoting quality in endoscopy Smith Guzmán MD ENDOSCOPY PROCEDURES Final Re sult from Last 3 Months or Most Recently Relevant to Health Maintenance Insurance [facility] AETNA [facility] Advance Directives For more information, please contact: [phone] * Full Code (Latest Code Status on File) Date Activated Date Inactivated Comments 02/17/2022 7:39 AM 02/17/2022 1:42 PM * Full Code Date Activated Date Inactivated Comments 02/17/2022 7:39 AM 02/17/2022 7:39 AM * Full Code Date Activated Date Inactivated Comments 05/21/2021 12:59 PM 05/21/2021 6:05 PM Care Teams Abstracter Relationship Specialty Start Date End Date Marcy Hernandez MD [address] [place] [address] PCP - General Internal Medicine 07/30/20
--- OUTSIDE RECORDS SUMMARY | 2025-01-19 09:27 | XMS_ITS | Clinical Summary ---
Author Organization [address] Address [address] [place] [address] Care Team Providers Care Vice President [employer] Name Role Phone Marcy Hernandez MD Primary Care Provider [phone] Allergies Active Allergy Reactions Criticality Noted Date Comments Ciprofloxacin Other (See comments) Reaction: tight chest, HTN, Codeine Unknown 02/16/2022 Hydrocodone Dizziness,Stomach upset Low 01/14/2021 Metformin Diarrhea Low 02/05/2021 Verapamil Rash Reaction: rash, Medications levothyroxine sodium (TIROSINT) 112 mcg capsule Take 1 capsule (112 mcg total) by mouth maintenance repairman before breakfast Active triamterene-hyd roCHLOROthiazid e (triamterene-hy droCHLOROthiazi de) 37.5-25 mg per tablet/capsule Take 1 tablet/capsule by mouth daily Active vitamin b complex tablet Take 1 tablet by mouth daily Active vit D3-vit R-izvaevrer-hpe s [id number] kfvw-gyp-hg-mg tablet Take by mouth Active metoprolol tartrate (LOPRESSOR) 75 mg tablet immediate release tablet Take 1 tablet (75 mg total) by mouth 2 (two) times a day 1 Active omega 1-fgm-rvn-fish oil (Fish Oil) 100-160-1,000 mg capsule 0 [...] (01/14/2022): Added automatically from request for surgery [id number] Abnormal nuclear cardiac imaging test 08/15/2021 Morbid obesity 04/10/2021 Major depressive disorder, s shena episode, in full remission 04/10/2021 Esophageal reflux 08/18/2020 Fatty liver 08/18/2020 Hypothyroidism 08/18/2020 Assessment & Plan (08/18/2020 10:41 PM GAS COMPRESSOR OPERATOR): Labs. Essential hypertension 08/18/2020 Assessment & Plan (08/18/2020 10:41 PM GAS COMPRESSOR OPERATOR): Reviewed role of diet, exercise, weight loss in controlling blood pressure. Recommended low sodium/DASH diet. Continue current medications. OA (osteoarthritis) 08/18/2020 Assessment & Plan (08/18/2020 10:22 PM GAS COMPRESSOR OPERATOR): Discussed potential for diminished pain, improved function [...] exercise. Assessment & Plan (12/17/2020 2:13 PM GAS COMPRESSOR OPERATOR): Reviewed calorie restriction based on BMR as previously detailed. Reviewed recommendation/goal of >/= 150 minutes/week moderate-intensity aerobic exercise. Asked to keep detailed food diary for at least 1 week and bring to next visit and/or continue tracking on phone. Assessment & Plan (08/18/2020 10:40 PM GAS COMPRESSOR OPERATOR): Discussed that weight loss will require calorie [...] 08/18/2020 Assessment & Plan (08/18/2020 10:41 PM GAS COMPRESSOR OPERATOR): Labs. Discussed importance of adequate sleep; good [...] diet. Assessment & Plan (08/18/2020 10:41 PM GAS COMPRESSOR OPERATOR): Labs. Discussed insulin resistance including effect on weight and risk for progression to diabetes. Recommended low-carb, low-glycemic diet; choose whole grains and avoid more highly processed carbohydrates. Discussed potential benefits of this w/r/t gut microbiome. Referred to [employer] and [employer] websites for additional information on topics including glycemic index/carbohydrate choices, protein sources. Lumbar spinal stenosis 09/18/2016 ORION (obstructive sleep apnea) 02/05/2016 Assessment & Plan (08/18/2020 10:42 PM GAS COMPRESSOR OPERATOR): Discussed comorbidities associated with sleep apnea, including effects on weight, and stressed importance of adequate treatment if present. Recommended follow up with sleep medicine. Surgical History Surgery Date Site/Laterality Comments CHOLECYSTECTOMY UMBILICAL HERNIA REPAIR SINUS SURGERY KNEE ARTHROSCOPY SHOULDER SURGERY COLONOSCOPY 10/11/2013 - 10/10/2014 Medical History Medical History Date Comments Morbid obesity (HCC) Anxiety Arthritis Depression Diverticulitis of colon GERD (gastroesophageal reflux disease) Hypercholesteremia Hypertension Irritable bowel syndrome Low back pain Sleep apnea Thyroid disease Vitamin D deficiency Family History Medical History Relation Name Comments Alcohol abuse Brother Hyperlipidemia Brother Hypertension Brother Substance Abuse Brother Bladder Cancer Father Hyperlipidemia Father Hypertension Father overweight Father Breast cancer Mother Hyperlipidemia Mother Hypertension Mother overweight Mother Relation Name Status Comments Brother Father Mother Social History Tobacco Use Types Packs/Day [...] on file Legal Sex Female 8:12 AM GAS COMPRESSOR OPERATOR Gender Identity Female 02/04/2021 10:40 AM CDT Sexual Orientation Straight 02/04/2021 10 :40 AM CDT Obstetrics History Para Term AB IAB SAB Ectopic Multiple Livin g Live Births 2 2 2 Date Outcome GA Total Labor Labor/2nd/3rd Weight Sex Type Anes PTL Amelia A1 A5 Name Clin Term Term Last Filed Vital Signs Vital Sign Reading [...] 06/02/2023 10:02 AM CDT Plan of Treatment Health Maintenance Due Date Last Done Comments Depression Screening 1965 Hepatitis C Screening 1965 Hepatitis B Screening 01/04/1982 Regular Well Visit/Exam 18-64 01/04/1982 Pneumococcal vaccine <65 (1 of 2 - PCV) 01/04/1983 Zoster Vaccine (1 of 2) 01/04/2014 Breast Cancer Screening-Mammogram 11/11/2024 11/11/2023, 02/22/2016, 02/22/2016 Influenza Vaccine (Season Ended) 2025 08/17/20 18 DTaP/Tdap/Td Vaccine (2 - Td or Tdap) 01/26/2028 01/25/2018 Colon Cancer Screening-Colonoscopy 02/18/20322021 Colon Cancer Screening-CT Colonography Discontinued 02/17/2022 Colon Cancer Screening-DNA Stool Discontinued 02/18/20 Colon Cancer Screening-FIT Discontinued 02/17/2022 Colon Cancer Screening-Sigmoidoscopy Discontinued 02/08 Procedures Procedure Name Priority Date/Time Associated Diagnosis Comments DIAGNOSTIC MAMMOGRAM BILATERAL W BRYAN Schedule Routine, Read Routine (OP Routine) 11/11/2023 8:49 AM GAS COMPRESSOR OPERATOR Subareolar mass of right breast Subareolar mass of left breast COLONOSCOPY 02/17/2022 7:30 AM CDT from Last 3 Months or Most Recently Relevant to Health Maintenance Results * Diagnostic Mammogram Bilateral W Bryan (11/11/2023 8:49 AM GAS COMPRESSOR OPERATOR) Anatomical Region Laterality Modality Breast Bilateral Mammography 11/11/2023 9:38 AM GAS COMPRESSOR OPERATOR Impressions 11/11/2023 9:38 AM GAS COMPRESSOR OPERATOR 1. No suspicious findings are identified in [...] signed by: IVORY Winkler 11/11/2023 9:38 AM GAS COMPRESSOR OPERATOR EXAMINATION: DIAGNOSTIC MAMMOGRAM BILATERAL W BRYAN, US [...] Guzmán MD - 02/17/2022 7:30 AM CDT [facility] [place] Patient Name: Cele Waggoner Procedure Date: 02/17/2022 7:30 AM Date of : 1965 Admit Type: Outpatient Age: 57 Gender: Female Attending MD: Smith Guzmán M.D. Room: [facility] ENDOSCOPY ROOM 2 Note Status: Finalized Patient [...] scope was passed under direct vision. TheColonoscope [id number] was introduced through the anus and advanced [...] history of colonic polyps CPT copyright 2020 [employer]. All rights reserved. The codes documented in this report are preliminary and upon voyage management system operator reviewmay be revised to meet current compliance requirements. Recognized by the [employer] for promoting quality in endoscopy Smith Guzmán MD ENDOSCOPY PROCEDURES Final Re sult from Last 3 Months or Most Recently Relevant to Health Maintenance [place] [address] [place] [address] [facility] AETNA [facility] Advance Directives For more information, please contact: [phone] * Full Code (Latest Code Status on File) Date Activated Date Inactivated Comments 02/17/2022 7:39 AM 02/17/2022 1:42 PM * Full Code Date Activated Date Inactivated Comments 02/17/2022 7:39 AM 02/17/2022 7:39 AM * Full Code Date Activated Date Inactivated Comments 05/21/2021 12:59 PM 05/21/2021 6:05 PM Care Teams Vice President [employer] Relationship Specialty Start Date End Date Marcy Hernandez MD [address] [place] [address] PCP - General Internal Medicine 07/30/20
--- OUTSIDE RECORDS SUMMARY | 2025-01-19 09:54 | XMS_ITS | Clinical Summary ---
Author Organization [facility] Address [address] [place] [address] Care Team Providers Care Print Shop Assistant Name Role Phone Carlos Enrique Hernandez MD Primary Care Provider Allergies Active Allergy Reactions Criticality Noted Date [...] Vitamin B12 100 MCG tablet Vitamin B12 [id number] Active vitamin D3, cholecalciferol, 125 mcg capsule Take 1 capsule (5,000 Units total) by mouth. Active Berberine-RedIso OrbjkIgb-X-N (OSTERA) Tab Take by mouth Active B [...] (01/02/2025): Added automatically from request for surgery [id number] Essential hypertension 05/20/2015 Assessment & Plan (01/04/2025 [...] Department Care Team Description 01/11/[address] [facility] [address] [address] Carlos Enrique Hernandez MD 01/10/[address] [facility] [address] [address] Carlos Enrique Hernandez MD Stress Test 01/10/[address] [facility] [address] [address] Carlos Enrique Hernandez MD 01/08/2025 7:00 AM CDT - 01/08/2025 11:05 AM CDT Hospital Encounter [facility] [address] Carlos Enrique Hernandez MD Discharge Disposition: Home or Self Care (Routine Discharge) 01/08/2025 Travel 01/03/[address] [facility] [address] [phone] Carlos Enrique Hernandez MD MRI (SCAN); Medication Request 01/03/[address] [facility] [address] [address] Carlos Enrique Hernandez MD 01/02/2025 3:30 PM CDT - 01/02/2025 11:59 PM CDT Hospital Encounter [facility] [address] [place] [address] Carlos Enrique Hernandez MD Discharge Disposition: Home or Self Care (Routine Discharge) 01/02/2025 2:20 PM CDT Office Visit [facility] [address] [address] Carlos Enrique Hernandez MD Meet and Greet [...] Info) Description 01/26/2025 2:15 PM CDT Appointment [facility] [address] [place] [address] [place] [address] [facility] [address] [place] [id number] 02/05/2025 11:20 AM CDT Office Visit [facility] Family & Internal Medicine - [address] [address] [place] [address] [facility] [address] [place] [address] Health Maintenance Due Date Last Done Comments [...] - 2023-2 5 season) 2024 PHQ-2 (Physician [place]) 10/11/2024 Mammogram Screening 11/11/2025 11/11/2023, 08/20/2016, 02/22/2016 [...] spondylosis LIPID PANEL Routine 11/21/2015 7:51 PM PAINTER PLATE from Last 3 Months or Most Recently Relevant to Health Maintenance Results * USV CAROTID DUPLEX PAMELA (01/08/2025 7:49 AM CDT) Anatomical Region Laterality Modality Neck Vascular Ultraso und 01/08/2025 7:30 AM CDT Narrative 01/08/2025 9:41 AM CDT CAROTID ARTERY DUPLEX IMAGING [facility] Pat.Name: CELE WAGGONER Pat.ID: [id number] .Date: 01/08/2025 Refer.MD: Carlos Enrique Hernandez Exam [...] VASCULAR LAB Pat.Name: CELE WAGGONER Sandra Pat.ID: [id number] St.Date: 01/08/2025 Refer.MD: Carlos Enrique Hernandez Exam Time: 7:30:00 AM Study Type:TEAGAN VS Duplex Carotid BI Age: 2 1965,60Y Sex: F Sonogrphr: [facility] Pat. Stat.:Outpatient History / Clinical:Carotid calcifications on [...] 8:25 AM Narrative 01/03/2025 8:39 AM CDT [address] [place] [address] Examination: Cervical spine x-rays Exam Date/Time: 01/02/2025 [...] Procedure Note Rico Badillo MD - 01/03/[address] [place] [address] Examination: Cervical spine x-rays Exam Date/Time: 01/02/2025 [...] * (ABNORMAL) LIPID PANEL (11/21/2015 7:51 PM PAINTER PLATE) DIRECT LDL 187(H) 0 - 129 MG/DL [...] 150- 199 BORDERLINE HIGH 11/21/2015 7:51 PM PAINTER PLATE 11/21/2015 7:51 PM PAINTER PLATE Narrative [facility] TO EPIC CONVERSION - 11/21/2015 8:45 PM PAINTER PLATE [id number] 10:50AM by Julia Malik: to be addressed by PCP Result Communication: No patient communication needed at this time us Julia Malik MD LABORATORY Final Resul t [facility] TO EPIC CONVERSION from Last 3 Months or Most Recently Relevant to Health Maintenance Insurance MEDICAID Care Teams Print Shop Assistant Relationship Specialty Start [place] [address] [place] [address] PCP - General INTERNAL MEDICINE 12/26/24
--- OUTSIDE RECORDS SUMMARY | 2025-01-19 09:54 | XMS_ITS | Encounter Summary ---
Author Organization [facility] Address [address] [facility] [place] [address] Phone Care Team Providers Care Forest Pathology Professor Name Role Phone Carlos Enrique Swain MD Primary Care Provider [phone] Fortino Trejo MD Unavailable Unavaila ble Reason for Referral * PT/OT/ST (Routine) - Open Specialty Diagnoses / Procedures Referred By Joyce nicholson Referred To Contact Physical Therapy Diagnoses Cervical spondylosis Carlos Enrique Swain MD [address] [place] [address] Phone: tel: fax: [facility] [address], [address] [address] Phone: tel: fax: Referral ID Status Reason Start Date Expiration Date Visits Re quested Visits Authorized [id number] Open 01/03/2025 50 50 Scheduling Instructions Encounter Details Date Type Department Care Team (Late st Contact Info) Description 01/03/2025 Transcribe Orders [facility] [address] [place] [address] Carlos Enrique Swain MD [address] [place], [place] [phone] Cervical spondylosis (Primary Dx) Social History Tobacco [...] 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 Not on file Not on file documented as of this encounter Plan of Treatment Upcoming Encounters Date Type Department Care Team (Late st Contact Info) Description 01/23/2025 4:00 PM CDT Physical Therapy [facility] [address] [facility], [place] [address] [phone] Carlos Enrique Swain MD [address] [place], [place] [phone] Rico Franco, BAKERY PA[employer] INTERNS[employer]IP [place] Discharge Disposition: Discharged to home or Selfcare 01/25/2025 1:45 PM CDT Physical Therapy [facility] [address], [place] [address] [address] Carlos Enrique Swain MD [address] [place] [address] Rico Franco, BAKERY PASTR[employer] INTERNSHIP [place] 01/30/2025 2:00 PM CDT Physical Therapy [facility] [address], [place] [address] [phone] Carlos Enrique Swain MD [address] [place], [place] [phone] Tamika Louis PT [place] 02/01/2025 1:45 PM CDT Physical Therapy [facility] [address] [facility], [place] [place] [address] Carlos Enrique Swain MD [address] [place] [address] Rico Franco, BAKERY PA[employer] INTER[employer]IP [place] 02/06/2025 8:30 AM CDT Physical Therapy [facility] [address], [place] [address] [place] [phone] Carlos Enrique Swain MD [address] [facility] [address] [place], [place] [phone] Rico Franco, BAKERY PASTR[employer] INTERNSHIP [place] 02/08/2025 2:45 PM CDT Physical Therapy [facility] [address], [address] [phone] Carlos Enrique Swain MD [address] [place] [address] Tamika Louis, PT [place] 02/13/2025 1:45 PM CDT Physical Therapy [facility] [address], [address] [phone] Carlos Enrique Swain MD [address] [place] [address] Rico Franco, BAKERY PA[employer] INTERNS[employer]IP [place] 02/15/2025 1:45 PM CDT Physical Therapy [facility] [address], [facility] [address] [place] [phone] Carlos Enrique Swain MD [address] [place] [address] Rico Franco, [place] 02/20/2025 2:45 PM CDT Physical Therapy [facility] [address], [place] [address] [place] [address] Carlos Enrique Swain MD [address] [place] [address] Tamika Louis, PT [place] 02/22/2025 2:00 PM CDT Physical Therapy [facility] [address], [place] [address] [place] [address] Carlos Enrique Swain MD [address] [facility] [address] [place] [address] Tamika Louis, PT [place] 02/27/2025 2:00 PM CDT Physical Therapy [facility] [address] [facility], [place] [address] [address] Carlos Enrique Swain MD [address] [facility] [address] [place] [address] Tamika Louis, PT [place] Scheduled Referrals Name Type Priority Associated Diagnoses Orde r Schedule PHYSICAL THERAPY REFERRAL Outpatient Referral Routine Cervical spondylosis Expected: 01/03/2025, Expires: 01/03/2026 documented as of this encounter Visit Diagnoses Diagnosis Cervical spondylosis- Primary Cervical spondylosis without myelopathy documented in this encounter Care Teams Forest Pathology Professor Relationship Specialty Start Date End Date Carlos Enrique Swain MD [address] [place] [address] PCP - General Internal Medicine 11/04/15 Fortino Trejo MD [address] [place] [address] Otolaryngology 01/21/16 documented as of this encounter
--- OUTSIDE RECORDS SUMMARY | 2025-01-19 09:54 | XMS_ITS | Clinical Summary ---
Author Organization [facility] Address [address] [place] [address] Care Team Providers Care Outside Dealer Sales Representative Name Role Phone Carlos Enrique Swain MD Primary Care Provider [phone] Source Comments [facility],non-owned Affiliates and Associated Physician Practices is amultiple site organization consisting of ambulatory clinics and hospital sitesin [place], [place], [place] and [place]. This disclosure is being madepursuant to the Care Everywhere program and may not contain all information available regarding this patient. Last updated 18.[facility] Social History Tobacco Use Types Packs/Day Years [...] Pap Image-Guided Liquid-Based with HPV Accession No: [id number] Specimen:Endocervi nirav ThinPrep Slides:1 SPECIMEN ADEQUACY: SATISFACTORY FOR EVALUATION - No Endocervical / Transformation Zone Component Present INTERPRETATION: NEGATIVE FOR INTRAEPITHELIAL LESION OR MALIGNANCY OTHER FINDINGS: - Predominance of coccobacilli consistent with a shift in vaginal millie NOTE(S): HPV DIRECT - HPV Result to Follow This specimen was evaluated by the ThinPrep Imaging System along with an additional manual rescreening by a textile chemist and/or pathologist Interpretation performed by Karli ALEJO (ASCP). Electronically signed 02/05/2017 [facility] Endocervical 02/01/2017 02/04/2017 8 :55 AM CDT Jose Barclay MD LAB - PATHOLOGY/CYTO LOGY ORDERABLES [facility] from Last 3 Months or Most Recently Relevant to Health Maintenance Care Teams Outside Dealer Sales Representative Relationship Specialty Start Date End Date Carlos Enrique Swain MD [address] [place] [address] PCP - General 05/17/19
--- OUTSIDE RECORDS SUMMARY | 2025-01-19 09:54 | XMS_ITS | Clinical Summary ---
Author Organization [facility] Address [address] [place] [address] Phone Care Team Providers Care Senior Program Analyst Name Role Phone Carlos Enrique Swain MD Primary Care Provider [phone] Fortino Trejo MD Unavailable Unavaila ble Allergies [...] Additional Information Patient not taking.Reported on 08/14/2021 Southmayd-3 Fatty Acids (FISH OIL PO) Take 1 Capsule by mouth daily. Active famotidine (PEPCID) 10 MG Tablet Take 10 mg by mouth 2 times daily. Active SZEDGA-LQAI-CXQ -VI-F-ZVYS-SECU PO Take 1 Tablet by mouth daily. Active Active Problems Problem Noted Date Diagnosed Date Lumbar spinal stenosis 09/18/2016 ORION (obstructive sleep apnea) 02/05/2016 Esophageal reflux Fatty liver Systemic hypertension Hypothyroidism Morbid obesity Pharyngeal disorder Encounters Date Type Department Care Team Description 01/16/2025 10:45 AM CDT Physical [facility] [address], [place] [place] [address] Suthan, Nanthini, MD Bogowith, Tamika A, PT Chronic neck pain (Primary Dx); Cervical spondylosis Discharge Disposition: Discharged to home or Selfcare 01/16/2025 Plan of Care Documentation [facility] at [address], [place] [address] [place] [address] 01/15/2025 Travel 01/03/2025 Transcribe Orders [facility] [address] [place] [address] Carlos Enrique Swain MD Cervical spondylosis (Primary [...] 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 Not on file Not on file Last Filed Vital Signs Vital Sign Reading Time Taken Comments Blood Pressure 125/79 08/19/2021 12:45 PM DISPATCH COORDINATOR Pulse 64 08/19/2021 12:45 PM DISPATCH COORDINATOR Temperature 36.8 C (98.2 F) 08/19/2021 12:45 PM DISPATCH COORDINATOR Respiratory Rate 16 08/19/2021 12:45 PM DISPATCH COORDINATOR Oxygen Saturation 96% 08/19/2021 12:45 PM DISPATCH COORDINATOR Inhaled Oxygen Concentration - - Weight 126.6 kg (279 lb) 08/19/2021 8:08 AM DISPATCH COORDINATOR Height 170.2 cm (5' 7 ) 08/19/2021 8:08 AM DISPATCH COORDINATOR Body Mass Index 43.7 08/19/2021 8:08 AM DISPATCH COORDINATOR Plan of Treatment Upcoming Encounters Date Type Department Care Team (Late st Contact Info) Description 01/23/2025 4:00 PM CDT Physical Therapy [facility] at [address] [place] [address] Carlos Enrique Swain MD [address] [place], [place] [phone] Rico Franco, AIR BOX TESTER [place] Discharge Disposition: Discharged to home or Selfcare 01/25/2025 1:45 PM CDT Physical Therapy [facility] [address], [address] [address] [place] [address] Carlos Enrique Swain MD [address] [place], [place] [phone] Rico Franco, BISI [place] 01/30/2025 2:00 PM CDT Physical Therapy [facility] [address], [address] [place] [address] Carlos Enrique Swain MD [address] [place], [place] [phone] Tamika Louis, PT [place] 02/01/2025 1:45 PM CDT Physical Therapy [facility] [address], [address] [place] [address] Carlos Enrique Swain MD [address] [place], [place] [phone] Rico Franco PTA [place] 02/06/2025 8:30 AM CDT Physical Therapy [facility] [address], [place] [address] [place] [address] Carlos Enrique Swain MD [address] [place], [place] [phone] Rico Franco, BISI [place] 02/08/2025 2:45 PM CDT Physical Therapy [facility] [address] [facility], [place] [address] [place] [address] Carlos Enrique Swain MD [address] [facility] [address] [place], [place] [phone] Tamika Louis, PT [place] 02/13/2025 1:45 PM CDT Physical Therapy [facility] [address], [place] [address] [place] [address] Carlos Enrique Swain MD [address] [place], [place] [phone] Rico Franco, AIR BOX TESTER [place] 02/15/2025 1:45 PM CDT Physical Therapy [facility] [address], [place] [address] [place] [address] Carlos Enrique Swain MD [address] [facility] [address] [place] [address] Rico Franco, AIR BOX TESTER [place] 02/20/2025 2:45 PM CDT Physical Therapy [facility] [address], [place] [address] [place] [address] Carlos Enrique Swain MD [address] [facility] [address] [place], [place] [phone] Tamika Louis, PT [place] 02/22/2025 2:00 PM CDT Physical Therapy [facility] [address], [place] [address] [place] [address] Carlos Enrique Swain MD [address] [place] [address] Tamika Louis, PT [place] 02/27/2025 2:00 PM CDT Physical Therapy [facility] [place] [address], [place] [address] [place] [address] Carlos Enrique Swain MD [address] [place] [address] Tamika Louis, PT [place] Health [...] this topic Medical Devices Implanted Type Area Outdoor Fitness Trainer Device Identifier Shelf Expiration Date Model / Serial / Lot Device Clsr 5fr Mynxgrip Medical Office Technician Vasc Bln Cath Lock Syr Integrate Sealant 10ml Lf Disp - [id number] Implanted:Qty : 1 on 08/19/2021 by Rosana Marrero MD at [facility] IMPLANT Right: [employer] 07/10/2023 [id number] / / [id number] Procedures Procedure Name Priority Date/Time Associated Diagnosis [...] Comparison is made to exams dated: 12/25/2014 [facility] and 03/14/2012 [facility]. BREAST TISSUE: The tissue of both breasts [...] signed by: Woody Escalante M.D. nh/:02/24/2016 09:11:20 Optical Assistant: Yolette VILLEGAS(Nate)(M), [facility] letter sent: Normal Exam Reading location: [facility] BI-RADS: 2 Benign Procedure Note Woody Escalante [...] Comparison is made to exams dated: 12/25/2014 [facility] and 03/14/2012 [facility]. BREAST TISSUE: The tissue of both breasts [...] signed by: Woody Escalante M.D. nh/:02/24/2016 09:11:20 Optical Assistant: Yolette VILLEGAS(R)(M), [facility] letter sent: Normal Exam Reading location: [facility] BI-RADS: 2 Benign us Carlos Enrique Swain MD IMG MAMMO ORDERABLES Final Re sult * HM COLONOSCOPY (09/03/2014) us Marc Charles DO PROCEDURE/MINOR SURGICAL ORDERA BLES Final Result from Last 3 Months or Most Recently Relevant to Health Maintenance Insurance MEDICAID [employer] Care Teams Senior Program Analyst Relationship Specialty Start Date End Date Carlos Enrique Swain MD [address] [place] [address] PCP - General Internal Medicine 11/04/15 Fortino Terjo MD [address] [facility] [address] [place] [address] Otolaryngology 01/21/16
--- OUTSIDE RECORDS SUMMARY | 2025-01-19 09:54 | XMS_ITS | Encounter Summary ---
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
--- OUTSIDE RECORDS SUMMARY | 2025-01-19 09:54 | XMS_ITS | Encounter Summary ---
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
--- OUTSIDE RECORDS SUMMARY | 2025-01-19 09:55 | XMS_ITS | Referral Summary ---
Author Organization [address] Address [address] [place] [address] Care Team Providers Care Ships Equipment Engineer Name Role Phone Marcy Hernandez MD Primary Care Provider [phone] Allergies Active Allergy Reactions Criticality Noted Date Comments Ciprofloxacin Other (See comments) Reaction: tight chest, HTN, Codeine Unknown 02/16/2022 Hydrocodone Dizziness,Stomach upset Low 01/14/2021 Metformin Diarrhea Low 02/05/2021 Verapamil Rash Reaction: rash, Medications levothyroxine sodium (TIROSINT) 112 mcg capsule Take 1 capsule (112 mcg total) by mouth early childhood assistant before breakfast Active triamterene-hyd roCHLOROthiazid e (triamterene-hy droCHLOROthiazi de) 37.5-25 mg per tablet/capsule Take 1 tablet/capsule by mouth daily Active vitamin b complex tablet Take 1 tablet by mouth daily Active vit D3-vit E-bjgdfxojd-irg s [phone] iyyd-xqf-oo-mg tablet Take by mouth Active metoprolol tartrate (LOPRESSOR) 75 mg tablet immediate release tablet Take 1 tablet (75 mg total) by mouth 2 (two) times a day 1 Active omega 9-eql-utm-fish oil (Fish Oil) 100-160-1,000 mg capsule 0 [...] (01/14/2022): Added automatically from request for surgery [id number] Abnormal nuclear cardiac imaging test 08/15/2021 Morbid obesity 04/10/2021 Major depressive disorder, s shena episode, in full remission 04/10/2021 Esophageal reflux 08/18/2020 Fatty liver 08/18/2020 Hypothyroidism 08/18/2020 Assessment & Plan (08/18/2020 10:41 PM MEDICAL SUPPLY TECHNICIAN): Labs. Essential hypertension 08/18/2020 Assessment & Plan (08/18/2020 10:41 PM MEDICAL SUPPLY TECHNICIAN): Reviewed role of diet, exercise, weight loss in controlling blood pressure. Recommended low sodium/DASH diet. Continue current medications. OA (osteoarthritis) 08/18/2020 Assessment & Plan (08/18/2020 10:22 PM MEDICAL SUPPLY TECHNICIAN): Discussed potential for diminished pain, improved function [...] exercise. Assessment & Plan (12/17/2020 2:13 PM MEDICAL SUPPLY TECHNICIAN): Reviewed calorie restriction based on BMR as previously detailed. Reviewed recommendation/goal of >/= 150 minutes/week moderate-intensity aerobic exercise. Asked to keep detailed food diary for at least 1 week and bring to next visit and/or continue tracking on phone. Assessment & Plan (08/18/2020 10:40 PM MEDICAL SUPPLY TECHNICIAN): Discussed that weight loss will require calorie [...] 08/18/2020 Assessment & Plan (08/18/2020 10:41 PM MEDICAL SUPPLY TECHNICIAN): Labs. Discussed importance of adequate sleep; good [...] diet. Assessment & Plan (08/18/2020 10:41 PM MEDICAL SUPPLY TECHNICIAN): Labs. Discussed insulin resistance including effect on weight and risk for progression to diabetes. Recommended low-carb, low-glycemic diet; choose whole grains and avoid more highly processed carbohydrates. Discussed potential benefits of this w/r/t gut microbiome. Referred to ADA and [employer] websites for additional information on topics including glycemic index/carbohydrate choices, protein sources. Lumbar spinal stenosis 09/18/2016 ORION (obstructive sleep apnea) 02/05/2016 Assessment & Plan (08/18/2020 10:42 PM MEDICAL SUPPLY TECHNICIAN): Discussed comorbidities associated with sleep apnea, including [...] on file Legal Sex Female 8:12 AM MEDICAL SUPPLY TECHNICIAN Gender Identity Female 02/04/2021 10:40 AM CDT [...] Read Routine (OP Routine) 11/11/2023 8:49 AM MEDICAL SUPPLY TECHNICIAN Subareolar mass of right breast Subareolar mass of left breast COLONOSCOPY 02/17/2022 7:30 AM CDT from Last 3 Months or Most Recently Relevant to Health Maintenance Results * Diagnostic Mammogram Bilateral W Bryan (11/11/2023 8:49 AM MEDICAL SUPPLY TECHNICIAN) Anatomical Region Laterality Modality Breast Bilateral Mammography 11/11/2023 9:38 AM MEDICAL SUPPLY TECHNICIAN Impressions 11/11/2023 9:38 AM MEDICAL SUPPLY TECHNICIAN 1. No suspicious findings are identified in [...] signed by: IVORY Winkler 11/11/2023 9:38 AM MEDICAL SUPPLY TECHNICIAN EXAMINATION: DIAGNOSTIC MAMMOGRAM BILATERAL W BRYAN, US [...] Guzmán MD - 02/17/2022 7:30 AM CDT [facility] Patient Name: Cele Waggoner Procedure Date: 02/17/2022 7:30 AM Date of : 1965 Admit Type: Outpatient Age: 57 Gender: Female Attending MD: Smith Guzmán M.D. [facility] 2 Note Status: Finalized Patient [...] scope was passed under direct vision. TheColonoscope [id number] was introduced through the anus and advanced [...] history of colonic polyps CPT copyright 2020 [employer]. All rights reserved. The codes documented in this report are preliminary and upon phone counselor reviewmay be revised to meet current compliance requirements. Recognized by the [employer] for promoting quality in endoscopy Smith Guzmán MD ENDOSCOPY PROCEDURES Final Re sult from Last 3 Months or Most Recently Relevant to Health Maintenance Insurance [facility]ETNA [facility] Advance Directives For more information, please contact: [phone] * Full Code (Latest Code Status on File) Date Activated Date Inactivated Comments 02/17/2022 7:39 AM 02/17/2022 1:42 PM * Full Code Date Activated Date Inactivated Comments 02/17/2022 7:39 AM 02/17/2022 7:39 AM * Full Code Date Activated Date Inactivated Comments 05/21/2021 12:59 PM 05/21/2021 6:05 PM Care Teams Ships Equipment Engineer Relationship Specialty Start Date End Date Marcy Hernandez MD [address] [place] [address] PCP - General Internal Medicine 07/30/20
--- OUTSIDE RECORDS SUMMARY | 2025-01-19 09:55 | XMS_ITS | Clinical Summary ---
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 Name Role Phone Marcy Hernandez MD Primary Care Provider [phone] Allergies Active Allergy Reactions Criticality Noted Date Comments Ciprofloxacin Other (See comments) Reaction: tight chest, HTN, Codeine Unknown 02/16/2022 Hydrocodone Dizziness,Stomach upset Low 01/14/2021 Metformin Diarrhea Low 02/05/2021 Verapamil Rash Reaction: rash, Medications levothyroxine sodium (TIROSINT) 112 mcg capsule Take 1 capsule (112 mcg total) by mouth fowl blood tester before breakfast Active triamterene-hyd roCHLOROthiazid e (triamterene-hy droCHLOROthiazi de) 37.5-25 mg per tablet/capsule Take 1 tablet/capsule by mouth daily Active vitamin b complex tablet Take 1 tablet by mouth daily Active vit D3-vit K-jzwbrzqyr-ygz s [phone] dauk-vyz-ti-mg tablet Take by mouth Active metoprolol tartrate (LOPRESSOR) 75 mg tablet immediate release tablet Take 1 tablet (75 mg total) by mouth 2 (two) times a day 1 Active omega 9-heh-ksp-fish oil (Fish Oil) 100-160-1,000 mg capsule 0 [...] (01/14/2022): Added automatically from request for surgery [id number] Abnormal nuclear cardiac imaging test 08/15/2021 Morbid obesity 04/10/2021 Major depressive disorder, s shena episode, in full remission 04/10/2021 Esophageal reflux 08/18/2020 Fatty liver 08/18/2020 Hypothyroidism 08/18/2020 Assessment & Plan (08/18/2020 10:41 PM STEWARD/STEWARDESS CHIEF CARGO VESSEL): Labs. Essential hypertension 08/18/2020 Assessment & Plan (08/18/2020 10:41 PM STEWARD/STEWARDESS CHIEF CARGO VESSEL): Reviewed role of diet, exercise, weight loss in controlling blood pressure. Recommended low sodium/DASH diet. Continue current medications. OA (osteoarthritis) 08/18/2020 Assessment & Plan (08/18/2020 10:22 PM STEWARD/STEWARDESS CHIEF CARGO VESSEL): Discussed potential for diminished pain, improved function [...] exercise. Assessment & Plan (12/17/2020 2:13 PM STEWARD/STEWARDESS CHIEF CARGO VESSEL): Reviewed calorie restriction based on BMR as previously detailed. Reviewed recommendation/goal of >/= 150 minutes/week moderate-intensity aerobic exercise. Asked to keep detailed food diary for at least 1 week and bring to next visit and/or continue tracking on phone. Assessment & Plan (08/18/2020 10:40 PM STEWARD/STEWARDESS CHIEF CARGO VESSEL): Discussed that weight loss will require calorie [...] 08/18/2020 Assessment & Plan (08/18/2020 10:41 PM STEWARD/STEWARDESS CHIEF CARGO VESSEL): Labs. Discussed importance of adequate sleep; good [...] diet. Assessment & Plan (08/18/2020 10:41 PM STEWARD/STEWARDESS CHIEF CARGO VESSEL): Labs. Discussed insulin resistance including effect on weight and risk for progression to diabetes. Recommended low-carb, low-glycemic diet; choose whole grains and avoid more highly processed carbohydrates. Discussed potential benefits of this w/r/t gut microbiome. Referred to [employer] and [employer] websites for additional information on topics including glycemic index/carbohydrate choices, protein sources. Lumbar spinal stenosis 09/18/2016 ORION (obstructive sleep apnea) 02/05/2016 Assessment & Plan (08/18/2020 10:42 PM STEWARD/STEWARDESS CHIEF CARGO VESSEL): Discussed comorbidities associated with sleep apnea, including [...] on file Legal Sex Female 8:12 AM STEWARD/STEWARDESS CHIEF CARGO VESSEL Gender Identity Female 02/04/2021 10:40 AM CDT [...] Read Routine (OP Routine) 11/11/2023 8:49 AM STEWARD/STEWARDESS CHIEF CARGO VESSEL Subareolar mass of right breast Subareolar mass of left breast COLONOSCOPY 02/17/2022 7:30 AM CDT from Last 3 Months or Most Recently Relevant to Health Maintenance Results * Diagnostic Mammogram Bilateral W Bryan (11/11/2023 8:49 AM STEWARD/STEWARDESS CHIEF CARGO VESSEL) Anatomical Region Laterality Modality Breast Bilateral Mammography 11/11/2023 9:38 AM STEWARD/STEWARDESS CHIEF CARGO VESSEL Impressions 11/11/2023 9:38 AM STEWARD/STEWARDESS CHIEF CARGO VESSEL 1. No suspicious findings are identified in [...] signed by: IVORY Winkler 11/11/2023 9:38 AM STEWARD/STEWARDESS CHIEF CARGO VESSEL EXAMINATION: DIAGNOSTIC MAMMOGRAM BILATERAL W BRYAN, US [...] dilated ducts without intraductal masses. us Marcy Hernanedz MD IMG MAMMO PROCEDURES Final Re sult * COLONOSCOPY (02/17/2022 7:30 AM CDT) Anatomical Region Laterality Modality Other Narrative Procedure Note Smith Guzmán MD - 02/17/2022 7:30 AM CDT [facility] Patient Name: Cele Waggoner Procedure [...] scope was passed under direct vision. TheColonoscope [id number] was introduced through the anus and advanced [...] history of colonic polyps CPT copyright 2020 [employer]. All rights reserved. The codes documented in this report are preliminary and upon sea shell gatherer reviewmay be revised to meet current compliance requirements. Recognized by the [employer] for promoting quality in endoscopy Smith Guzmán MD ENDOSCOPY PROCEDURES Final Re sult from Last 3 Months or Most Recently Relevant to Health Maintenance [place] [address] [place] [address] [facility] AETNA [facility] Advance Directives For more information, please contact: [phone] * Full Code (Latest Code Status on File) Date Activated Date Inactivated Comments 02/17/2022 7:39 AM 02/17/2022 1:42 PM * Full Code Date Activated Date Inactivated Comments 02/17/2022 7:39 AM 02/17/2022 7:39 AM * Full Code Date Activated Date Inactivated Comments 05/21/2021 12:59 PM 05/21/2021 6:05 PM Care Teams Football Coach Relationship Specialty Start Date End Date Marcy Hernandez MD [address] [place] [address] PCP - General Internal Medicine 07/30/20
--- NOTE | 2025-01-19 09:57 | ECG_ITS ---
Test Date: 2025-01-19 10:23:01 Measurements Intervals [place] Rate: 65 P: 7 MO: 217 QRS: 8 QRSD: 89 T: 12 QT: 409 QTc: 427 Interpretive Statements SINUS RHYTHM WITH FIRST DEGREE AV BLOCK EARLY PRECORDIAL R/S TRANSITION VOLTAGE CRITERIA FOR LVH CONSIDER INFERIOR INFARCT, AGE INDETERMINATE ABNORMAL ECG No previous ECG available for comparison Electronically Signed On 01-19-2025 10:35:50 CDT by Joseph Vasquez D.O.
--- NOTE | 2025-01-19 09:59 | ED.WEAKNESS ---
HPI - Weakness General Chief complaint: Recheck/Abnormal Lab/Rx Stated complaint: I FEEL LIKE MY BP IS HIGH Time Seen by Provider: 01/19/25 09:15 History of Present Illness HPI Narrative: Patient is a 60-year-old female who presents to the ER complaints of nausea, tiredness, left-sided headache, and increased blood pressure. She reports she has had a headache off and on since October. Patient reports she had ?heart attack like symptoms in both October and December. She endorses history of high blood pressure but then lost 65 lb and was taken off her medication by her primary care provider. Patient reports she sees a functional medicine doctor who put her on a ?hormone pill but she did not get the most recent one refilled in November. She denies and says chest pain, fevers, shortness of breath, back pain. Related Data Home Medications ?Medication ?Instructions ?Recorded ?Confirmed ?Last Taken ?Type calcium carbonate (Tums E-X) 300 mg PO TID 01/18/20 08/12/20 04/26/20 History flaxseed oil 1,000 mg capsule 1,000 mg PO DAILY 01/18/20 08/12/20 04/26/20 History ([place]-3 Flaxseed Oil) levothyroxine 125 mcg capsule 125 mcg PO DAILY 01/18/20 08/12/20 05/03/20 07:30 History metoprolol tartrate 75 mg tablet 75 mg PO DAILY 01/18/20 08/12/20 05/03/20 07:30 History multivitamin 1 tablet PO DAILY 01/18/20 08/12/20 04/26/20 History triamterene 37.5 25 - 37.5 tablet PO DAILY 04/17/20 08/12/20 05/02/20 History mg-hydrochlorothiazide 25 mg tablet (Maxzide-25mg) glucosamine sulf dipot 1 cap PO DAILY 04/23/20 08/12/20 04/26/20 History chlr,msm,chond 550 mg-C 30 mg-jaswinder 1 mg capsule (Glucosamine Chondroitin) magnesium aspartate-potassium 1 cap PO DAILY PRN Cramps 04/23/20 08/12/20 04/26/20 History aspartate 250 mg-250 mg capsule vitamin B complex 1 tablet PO DAILY 04/23/20 08/12/20 04/26/20 History Allergies Allergy/AdvReac Type Severity Reaction Status Date / Time ciprofloxacin Allergy Unknown SHORTNESS Verified 01/19/25 09:16 OF BREATH, CHEST PRESSURE, HYPERTENSION verapamil Allergy Unknown PETECHIAE Verified 01/19/25 09:16 RASH metformin AdvReac Intermediate Diarrhea Verified 01/19/25 09:17 hydrocodone AdvReac NAUSEA, Verified 01/19/25 09:16 VOMITING, HEADACHE Review of Systems Review of Systems: All systems reviewed & are unremarkable except as noted in HPI and below PMFSH Past Medical History Medical History Morbid obesity with BMI of 45.0-49.9, adult Morbid obesity with BMI of 40.0-44.9, adult Depression Anxiety Hypothyroidism ORION (obstructive sleep apnea) Migraine History of mononucleosis (~1980) Tibialis tendonitis Jay's thyroiditis Hypertension Osteoarthritis of both knees Surgical History Surgical History History of tonsillectomy (~1980) History of umbilical hernia repair (~2003) History of shoulder surgery (~2004) History of cholecystectomy (~2013) Family History Family History Mother Hypertension Grandparent Cerebrovascular accident, Onset Age: 70 Father Family history of malignant neoplasm of urinary bladder Sibling Hypertension Social History Social History Smoking status: Never smoker Alcohol intake: current Gender identity (if verbalized by the patient): Female Spiritual care concerns: No Exam Narrative: GENERAL: Well appearing, well-nourished, non-toxic, in no acute distress. HEAD: Normocephalic, atraumatic. NECK: Supple. No adenopathy, no masses. RESPIRATORY: Airway patent, respirations nonlabored. Clear to auscultation bilaterally, no rales, rhonchi, wheezing. CARDIOVASCULAR: Regular rate and rhythm without murmurs, rubs, or gallops. Peripheral pulses 2+ and equal bilaterally. ABDOMINAL: Soft, nontender, nondistended, no hepatosplenomegaly. Normoactive BS. MUSCULOSKELETAL: Moves all extremities. Strength/ROM intact without gross deformities. SKIN: Warm, dry, normal color. No rashes. NEURO: A&O X3. Speech clear. Cranial nerves II-XII intact. No ataxic movements. PSYCHIATRIC: Appropriate mood and affect. Normal interaction. Course Vital Signs Vital signs: Vital Signs Temperature 36.6 C 01/19/25 09:11 Pulse Rate 85 01/19/25 09:11 Respiratory Rate 18 01/19/25 09:11 Blood Pressure 145/99 H 01/19/25 09:11 Pulse Oximetry 100 01/19/25 09:11 Oxygen Delivery Room Air 01/19/25 09:11 Temperature 36.6 C 01/19/25 09:11 Pulse Rate 67 01/19/25 11:31 Respiratory Rate 16 01/19/25 11:31 Blood Pressure 136/71 01/19/25 11:30 Pulse Oximetry 97 01/19/25 11:31 Oxygen Delivery Room Air 01/19/25 09:11 MDM - Weakness MDM Narrative Medical decision making narrative: Patient is a 60-year-old female who presents to the ER complaints of nausea, tiredness, left-sided headache, and increased blood pressure. She reports she has had a headache off and on since October. Patient reports she had ?heart attack like symptoms in both October and December. She endorses history of high blood pressure but then lost 65 lb and was taken off her medication by her primary care provider. Patient reports she sees a functional medicine doctor who put her on a ?hormone pill but she did not get the most recent one refilled in November. She denies and says chest pain, fevers, shortness of breath, back pain. Labs Ordered: CBC, CMP, troponin, lipase, TSH, INR, APTT, UA Imaging Ordered: CT brain, chest x-ray Medications Ordered: Lorazepam 1mg PO Results: Pt's CT scan indicates No evidence for acute intracranial hemorrhage or calvarial fracture. Her chest x-ray indicates LUNGS/ PLEURA: No focal consolidation. No appreciable pneumothorax or large pleural effusion. HEART/ MEDIASTINUM: Heart appears normal in size. BONES: No acute osseous abnormality. OTHER: Visualized upper abdomen is unremarkable. Diagnosis: Anxiety, hypertension Risks: HEART score: low risk HEART Score for Major Cardiac Events from Re5ult.Karisma Kidz on 01/19/2025 All calculations should be rechecked by clinician prior to use RESULT SUMMARY: 2 points Low Score (0-3 points) Risk of MACE of 0.9-1.7%. INPUTS: History ?> 0 = Slightly suspicious EKG ?> 0 = Normal Age ?> 1 = 45-64 Risk factors ?> 1 = 1-2 risk factors Initial troponin ?> 0 = <=Normal limit Patient Education/Shared MDM: Results shared with patient. She was offered medication for anxiety and is in agreement. Patient strongly advised to maintain hydration status upon discharge and follow-up with her PCP as soon as possible. She will be discharged home with a prescription for Hydroxyzine. Strict return precautions provided. Patient verbalized understanding and is in agreement with plan. Vital signs stable at time of discharge. All questions answered. Differential Diagnosis Differential diagnosis: Likely acute myocardial infarction, hypothyroidism, rhabdomyolysis, dehydration and other (costochondritis, anxiety) Lab Data Attestation: I reviewed the patient's lab results. 01/19/25 10:23 01/19/25 10:23 Labs: Lab Results 01/19/25 Range/Units 10:23 WBC 5.4 (4.5-10.0) K/mm3 RBC 4.37 (4.2-5.4) M/mm3 Hgb 14.3 (12.0-15.0) g/dL Hct 42.9 (37.0-47.0) % MCV 98.2 (80-100) fl MCH 32.7 (26-34) pg MCHC 33.3 (32-36) g/dl RDW 13.0 (11.5-14.5) % Plt Count 268 (150-375) k/mm3 MPV 10.1 (7.4-10.4) fl Immature Gran % (Auto) 0.2 (0-0.5) % Neut % (Auto) 58.3 (45.5-73.1) % Lymph % (Auto) 28.1 (18.3-44.2) % [place] % (Auto) 10.7 H (2.6-8.5) % Eos % (Auto) 2.0 (0-4.4) % Baso % (Auto) 0.7 (0.2-1.2) % Lymph # (Auto) 1.53 (0.9-3.2) K/mm3 [place] # (Auto) 0.6 (0.1-0.6) K/mm3 Eos # (Auto) 0.1 (0-0.3) K/mm3 Baso # (Auto) 0.0 (0.0-0.1) K/mm3 Abs Immat Gran (auto) 0.01 (0.00-0.031) K/mm3 Absolute Neuts (auto) 3.2 (1.3-6.7) K/mm3 Absolute Nucleated RBC 0.000 (0.0-0.012) K/mm3 Nucleated RBC % 0.0 (0.0-0.2) % PT 12.1 (11.1-14.7) Seconds INR 0.9 APTT 23.4 (22.3-36.8) Seconds Sodium 140 (137-145) mmol/L Potassium 4.2 (3.4-5.0) mmol/L Chloride 105 (98-107) mmol/L Carbon Dioxide 23 (22-30) mmol/L Anion Gap 12 (4-12) mmol/L BUN 19 H (7-17) mg/dL Creatinine 0.82 (0.7-1.0) mg/dL Estim Creat Clear Calc 80 ml/min Estimated GFR > 60 (59 - ) Glucose 97 (65-110) mg/dL Calcium 9.5 (8.4-10.2) mg/dL Total Bilirubin 0.4 (0.2-1.3) mg/dL AST 24 (14-36) U/L ALT 19 (6-35) U/L Alkaline Phosphatase 59 (38-126) U/L Troponin I < 0.012 (0.000-0.034) ng/mL Total Protein 8.0 (6.3-8.2) g/dL Albumin 4.5 (3.5-5.1) g/dL Lipase 119 (23-300) U/L TSH (Reflex) 1.440 (0.465-4.68) uIU/mL Urine Color Yellow (Yellow) Urine Appearance Clear (Clear) Urine pH 6.5 (5.0-9.0) Ur Specific [place] 1.011 (1.001-1.035) Urine Protein Negative (Negative) mg/dL Urine Glucose (UA) Negative (Negative) mg/dL Urine Ketones Negative (Negative) mg/dL Ur Blood (Man) Negative (Negative) Urine Nitrate Negative (Negative) Urine Bilirubin Negative (Negative) Urine Urobilinogen 0.2 (<2.0) mg/dL Leukocyte Esterase Rfl Negative (Negative) FRANKLYN/UL Imaging Data Attestation: I personally reviewed and interpreted this imaging study as follows: Radiologist's impression: Impressions Head CT 01/19/25 10:11 IMPRESSION: No evidence for acute intracranial hemorrhage or calvarial fracture. Chest X-Ray 01/19/25 10:19 IMPRESSION: No acute process. Discharge Plan Discharge Clinical Impression: Anxiety, Hypertension Patient Disposition: Home Condition: Stable Instructions: Antibiotic Form, Hypertension (ED), Anxiety (ED) Additional Instructions: Please return to the ER with any worsening symptoms. Follow-up with primary care provider as soon as possible. Take all medications as prescribed, including regularly scheduled medications. Patient Language: Amharic Prescriptions: New hydroxyzine HCl 25 mg tablet 25 mg PO TID PRN (Reason: anxiety) Qty: 20 0RF No Action metoprolol tartrate 75 mg tablet 75 mg PO DAILY levothyroxine 125 mcg capsule 125 mcg PO DAILY multivitamin Tablet 1 tablet PO DAILY flaxseed oil [[place]-3 Flaxseed Oil] 1,000 mg capsule 1,000 mg PO DAILY Rx Instructions: administer with a meal calcium carbonate [Tums E-X] 300 mg (750 mg) tablet,chewable 300 mg PO TID triamterene-hydrochlorothiazid [Maxzide-25mg] 37.5-25 mg tablet 25 - 37.5 tablet PO DAILY magnesium, potassium aspartate 250-250 mg Capsule 1 cap PO DAILY PRN (Reason: Cramps) vitamin B complex Tablet 1 tablet PO DAILY Glucosamine Chondroitin 550-30-1 mg Capsule 1 cap PO DAILY tramadol 50 mg tablet 50 mg PO Q6H PRN (Reason: pain) Qty: 20 0RF Follow-up/Referrals: Brynn,MD Carlos Enrique [Primary Care Provider] - Time of Disposition: 12:54
[2025-01-19 10:47] LABS: Basophils Percent Auto 0.7 % (0.2-1.2); Eosinophils Absolute Auto 0.1 K/mm3 (0-0.3); Hematocrit 42.9 % (37.0-47.0); Hemoglobin 14.3 g/dL (12.0-15.0); Immature Granulocyte Absolute 0.01 K/mm3 (0.00-0.031); Immature Granulocyte Percent A 0.2 % (0-0.5); Lymphocytes Absolute Auto 1.53 K/mm3 (0.9-3.2); Lymphocytes Percent Auto 28.1 % (18.3-44.2); Mean Corpuscular HGB Conc 33.3 g/dl (32-36); Mean Corpuscular Hemoglobin 32.7 pg (26-34); Mean Corpuscular Volume 98.2 fl (80-100); Mean Platelet Volume 10.1 fl (7.4-10.4); Monocytes Absolute Auto 0.6 K/mm3 (0.1-0.6); Monocytes Percent Auto 10.7 % (2.6-8.5); Neutrophils Absolute Auto 3.2 K/mm3 (1.3-6.7); Neutrophils Percent Auto 58.3 % (45.5-73.1); Platelet Count Result 268 k/mm3 (150-375); Red Blood Count 4.37 M/mm3 (4.2-5.4); White Blood Count 5.4 K/mm3 (4.5-10.0)
[2025-01-19 10:49] LABS: Add Urine Microscopic? NO; Appearance Urine Clear (Clear); Bilirubin Urine Negative (Negative); Blood Urine Negative (Negative); Color Urine Yellow (Yellow); Glucose Urine UA Negative (Negative); Ketones Urine Negative (Negative); Leukocyte Esterase Ur Negative LEU/UL (Negative); Nitrate Urine Negative (Negative); Protein Urine Negative (Negative); Specific Grav Ur 1.011 (1.001-1.035); Urobilinogen Urine 0.2 mg/dL (<2.0); pH Urine 6.5 (5.0-9.0)
[2025-01-19 10:54] LABS: Alanine Aminotransferase 19 U/L (6-35); Albumin Level 4.5 g/dL (3.5-5.1); Alkaline Phosphatase 59 U/L (38-126); Anion Gap 12 mmol/L (4-12); Aspartate Amino Transferase 24 U/L (14-36); Bilirubin,Total 0.4 mg/dL (0.2-1.3); Blood Urea Nitrogen 19 mg/dL (7-17); Calcium 9.5 mg/dL (8.4-10.2); Carbon Dioxide 23 mmol/L (22-30); Chloride 105 mmol/L (98-107); Estimated CRCL calculation 80 ml/min; Estimated Glomerular Filt Rate > 60; Glucose 97 mg/dL (65-110); Lipase 119 U/L (23-300); Potassium 4.2 mmol/L (3.4-5.0); Sodium 140 mmol/L (137-145)
[2025-01-19 11:03] LABS: INR 0.9; Prothrombin Time 12.1 Seconds (11.1-14.7)
[2025-01-19 11:04] LABS: Partial Thromboplastin Time 23.4 Seconds (22.3-36.8)
[2025-01-19 11:06] LABS: Troponin I < 0.012 ng/mL (0.000-0.034)
[2025-01-19] MEDS: LORazepam (*CRX) 1 MG TABLET PO (12:51)
== END 2025-01-19 13:03 | disposition home or self-care (01) ==
PROVIDERS: Emergency Provider Registered Nurse; PCP Internal Medicine
DX: I10 Essential (primary) hypertension (principal); F41.9 Anxiety disorder, unspecified; E66.01 Morbid (severe) obesity due to excess calories; E06.3 Autoimmune thyroiditis; G47.33 Obstructive sleep apnea (adult) (pediatric); M17.0 Bilateral primary osteoarthritis of knee; F32.A Depression, unspecified; Z90.49 Acquired absence of other specified parts of digestive tract; Z79.899 Other long term (current) drug therapy; I44.0 Atrioventricular block, first degree; R94.31 Abnormal electrocardiogram [ECG] [EKG]; Z68.37 Body mass index [BMI] 37.0-37.9, adult
CPT/HCPCS: 36415; 70450; 71046; 80053; 81003; 83690; 84443; 84484; 85025; 85610; 85730; 93005; 99284; A9270